=== PATIENT | male | born 1945 | race Caucasian/White ===

== ENCOUNTER 2016-11-19 23:43 | Emergency (ER) | payer OTHER ==
--- NOTE | 2016-11-19 23:48 | EDPHY ---
H & P HPI/ROS: HPI CHIEF COMPLAINT: Fall, lives at [facility] HISTORY OF PRESENT ILLNESS: This patient very pleasant 71-year-old male significant past medical history for schizophrenia, hypertension chronic kidney disease congestive heart failure type 2 diabetes COPD GERD BPH coronary artery disease, hyperlipidemia, obesity he presents to the emergency room by ambulance from [facility] after he had a fall. Patient tells me lost his balance he was walking forward he fell forward unclear if he struck his head. He denies LOC. Denies chest pain or shortness of breath. Tells me this time he has no complaints specifically denies pain anywhere. Does, the most form he is a full code. On his medication list there is no evidence that he is on any blood thinners he is insulin-dependent diabetic and has hypertension medications. He has no trauma visualized on exam. And has no focal complaints specifically denies headache, neck pain chest pain or shortness of breath. Patient is not exactly sure why he is here in the emergency room. Past Medical History: Schizophrenia, hypertension, chronic kidney disease, CHF , type 2 diabetes, COPD, GERD, BPH, coronary disease, hyperlipidemia, obesity, ? Dementia Past Surgical History: Abdominal surgery Social History: denies daily drugs use or alcohol lives at [facility] Family History: Non-Contributary ROS REVIEW OF SYSTEMS: A comprehensive 10 point review of systems is otherwise negative aside from elements mentioned in the history of present illness. Exam Constitutional triage nursing summary reviewed, vital signs reviewed, awake/ alert. Eyes normal conjunctivae and sclera, EOMI, PERRLA. HENT normal inspection, atraumatic, moist mucus membranes, no epistaxis, neck supple/ no meningismus, no raccoon eyes. Respiratory clear to auscultation bilaterally, normal breath sounds, no respiratory distress, no wheezing. Cardiovascular rate normal, regular rhythm, no murmur, no edema, distal pulses normal. Gastrointestinal soft, non-tender, no rebound, no guarding, normal bowel sounds, no distension, no pulsatile mass. Genitourinary no CVA tenderness. Musculoskeletal no midline vertebral tenderness, full range of motion, no calf swelling, no tenderness of extremities, no meningismus, good pulses, neurovascularly intact. Skin pink, warm, & dry, no rash, skin atraumatic. Neurologic awake, alert and oriented x 3, AAOx3, moves all 4 extremities equally, motor intact, sensory intact, CN II-XII intact, normal cerebellar, normal vision, normal speech. Psychiatric normal mood/affect. Heme/Lymph/Immune no lymphadenopathy. Differential Diagnosis: Includes but is not limited to in a particular order mechanical trip and fall, electrolyte disturbance, dehydration, vasovagal syncope or syncope, doubt acute coronary syndrome, closed head injury, cervical spine injury, chest wall injury Medical Decision Making: plan for this patient had a mechanical trip and fall at [facility] we did call the staff there they do confirm that he lost his balance while trying to open a door he had a mechanical trip and fall this was witnessed by his roommate. There was head strike against the door. No reported LOC no seizure activity. No syncopal event witnessed. Re-evaluation: CT scan of the head without IV contrast. The results of the study are negative for traumatic in. The study was read by Dr. Otero I viewed the images myself on the PACS system. CT scan of the cervical spine without IV contrast. The results of the study are negative for traumatic injury. The study was read by Dr. otero. I viewed the images myself on the PACS system. EKG interpretation by me on record in [email or web address] system. Impression time of EKG 12:14 a.m., this is sinus tachycardia rate of 106, otherwise unremarkable no signs of acute ischemia or cardiac arrhythmia. ED x-ray chest one view: Negative for acute cardiopulmonary disease. Image interpreted by myself. [id number]: Re-evaluation at this time this patient is resting comfortably no acute distress. CT scan blood work has been reviewed. Vital signs reviewed. Patient is hemodynamically stable no acute distress infected sleeping here in the emergency room. CT scan x-rays reviewed for trauma given mechanical fall. No evidence of acute trauma on exam. Patient is at his neurological baseline and I will allow him to go back to his living facility. Source: Patient, EMS Constitutional: Initial Vital Signs Temperature (C) 36.5 C 11/19/16 23:48 Heart Rate 88 11/19/16 23:48 Respiratory Rate 15 11/19/16 23:48 Blood Pressure 145/97 H 11/19/16 23:48 O2 Sat (%) 93 11/19/16 23:48 O2 Delivery Mode Room Air Allergies/Adverse Reactions: No Known Allergies Allergy (Unverified 11/20/16 00:01) Home Medications: Medication Instructions Recorded Benztropine Mesylate 11/20/16 Divalproex Sodium [Depakote] 500 mg PO 11/20/16 Docusate Sodium 100 mg PO 11/20/16 Insulin Aspart [novoLOG] 11/20/16 Insulin Detemir [Levemir] 100 unit SQ 11/20/16 Levothyroxine [Synthroid 75 mcg 75 mcg PO DAILY06 11/20/16 (*)] Lisinopril 20 mg PO 11/20/16 Melatonin 5 mg PO 11/20/16 Metformin HCl [Metformin 1000 mg] 11/20/16 Medical Decision Making - Data Points Laboratory Results: Laboratory Results 11/20/16 00:25 11/20/16 00:25 11/20/16 11/20/16 00:25 00:25 WBC 13.06 10^3/uL H 10^3/uL (3.80-9.50) RBC 5.24 10^6/uL 10^6/uL (4.40-6.38) Hgb 15.2 g/dL g/dL (13.7-17.5) Hct 45.6 % % (40.0-51.0) MCV 87.0 fL fL (81.5-99.8) MCH 29.0 pg pg (27.9-34.1) MCHC 33.3 g/dL g/dL (32.4-36.7) RDW 13.8 % % (11.5-15.2) Plt Count 215 10^3/uL 10^3/uL (150-400) MPV 11.6 fL fL (8.7-11.7) Neut % (Auto) 67.8 % % (39.3-74.2) Lymph % (Auto) 18.1 % % (15.0-45.0) [place] % (Auto) 11.3 % % (4.5-13.0) Eos % (Auto) 1.8 % % (0.6-7.6) Baso % (Auto) 0.7 % % (0.3-1.7) Nucleat RBC Rel Count 0.0 % % (0.0-0.2) Absolute Neuts (auto) 8.85 10^3/uL H 10^3/uL (1.70-6.50) Absolute Lymphs (auto) 2.37 10^3/uL 10^3/uL (1.00-3.00) Absolute Monos (auto) 1.47 10^3/uL H 10^3/uL (0.30-0.80) Absolute Eos (auto) 0.24 10^3/uL 10^3/uL (0.03-0.40) Absolute Basos (auto) 0.09 10^3/uL 10^3/uL (0.02-0.10) Absolute Nucleated RBC 0.00 10^3/uL 10^3/uL (0-0.01) Immature Gran % 0.3 % % (0.0-1.1) Immature Gran # 0.04 10^3/uL 10^3/uL (0.00-0.10) Sodium 140 mEq/L mEq/L (134-144) Potassium 5.1 mEq/L mEq/L (3.5-5.2) Chloride 103 mEq/L mEq/L (97-110) Carbon Dioxide 21 mEq/l L mEq/l (22-31) Anion Gap 16 mEq/L mEq/L (8-16) BUN 14 mg/dL mg/dL (7-23) Creatinine 0.9 mg/dL mg/dL (0.7-1.3) Estimated GFR > 60 Glucose 132 mg/dL H mg/dL (70-100) Calcium 9.3 mg/dL mg/dL (8.5-10.4) Troponin I < 0.012 ng/mL ng/mL (0-0.034) Medications Given: Discontinued Medications Sodium Chloride (Ns) 500 mls @ 0 mls/hr IV ONCE ONE PRN Reason: Wide Open Stop: 11/19/16 23:50 Last Admin: 11/20/16 00:27 Dose: 500 mls Departure - Departure Disposition: Home, Routine, Self-Care Clinical Impression: Fall Qualifiers: Encounter type: initial encounter Qualified Code(s): W19.XXXA - Unspecified fall, initial encounter Condition: Fair Instructions: Fall Prevention for Older Adults (ED), Fall Prevention (ED) Additional Instructions: 1. Please return emergency room if he develops any worsening symptoms questions or concerns. 2.You had a CT scan of her head and neck an x-ray given that you fell there is no injury seen on any of this imaging. Referrals: ONI TAYLOR [Primary Care Provider] - As per Instructions
[2016-11-19] MEDS ORDERED: NS 500 ML IV ONE (23:49)
--- NOTE | 2016-11-20 00:16 | CPEKG ---
Heart Rate: 106 RR Interval: 566 P-R Interval: 172 QRSD Interval: 94 QT Interval: 352 QTC Interval: 468 P [place]: 23 QRS [place]: -24 T Wave [place]: 68 EKG Severity - OTHERWISE NORMAL ECG - EKG Impression: SINUS TACHYCARDIA EKG Impression: BORDERLINE LEFT AXIS DEVIATION EKG Impression: Possible left atrial abnormality Electronically Signed By: Abdulkadir Roman 22-Nov-2016 12:26:33
[2016-11-20 00:38] LABS: % IMMATURE GRANULYOCYTES 0.3 % (0.0-1.1); ABSOLUTE IMMATURE GRANULOCYTES 0.04 10^3/uL (0.00-0.10); ADD DIFF? NO; ADD MORPH? NO; ADD SCAN? NO; ATYPICAL LYMPHOCYTE FLAG 0 (0-99); FRAGMENT RBC FLAG 0 (0-99); HEMATOCRIT 45.6 % (40.0-51.0); HEMOGLOBIN 15.2 g/dL (13.7-17.5); LEFT SHIFT FLG 0 (0-99); LIPEMIA HEMOLYSIS FLAG 80 (0-99); MEAN CELL HEMOGLOBIN CONCENTR. 33.3 g/dL (32.4-36.7); MEAN PLATELET VOLUME 11.6 fL (8.7-11.7); PLATELET CLUMPS FLAG 0 (0-99); PLATELET COUNT 215 10^3/uL (150-400); RED BLOOD CELL COUNT 5.24 10^6/uL (4.40-6.38); RED CELL DISTRIBUTION WIDTH 13.8 % (11.5-15.2)
[2016-11-20 00:57] LABS: ANION GAP 16 mEq/L (8-16); CALCIUM 9.3 mg/dL (8.5-10.4); CARBON DIOXIDE 21 mEq/l (22-31); CHLORIDE 103 mEq/L (97-110); CREATININE 0.9 mg/dL (0.7-1.3); GLOMERULAR FILTRATION RATE > 60; GLUCOSE 132 mg/dL (70-100); POTASSIUM 5.1 mEq/L (3.5-5.2); SODIUM 140 mEq/L (134-144)
[2016-11-20 01:09] LABS: TROPONIN I < 0.012 ng/mL (0-0.034)
[2016-11-20 01:38] VITALS: RESP 16; O2SAT 100
[2016-11-20 02:36] VITALS: BP 149/98; PULSE 74; TEMP 98.2
== END 2016-11-20 02:36 | disposition home or self-care (01) ==
DX: Z04.3 Encounter for examination and observation following other accident (principal); I12.9 Hypertensive chronic kidney disease with stage 1 through stage 4 chronic kidney disease, or unspecified chronic kidney disease; N18.9 Chronic kidney disease, unspecified; I50.9 Heart failure, unspecified; E11.9 Type 2 diabetes mellitus without complications; J44.9 Chronic obstructive pulmonary disease, unspecified; Z79.4 Long term (current) use of insulin; Z79.84 Long term (current) use of oral hypoglycemic drugs; W18.09XA Striking against other object with subsequent fall, initial encounter; Y93.01 Activity, walking, marching and hiking

== ENCOUNTER 2017-04-08 19:02 | Emergency (ER) | payer OTHER ==
[2017-04-08 19:16] VITALS: RESP 18
--- NOTE | 2017-04-08 19:16 | EDPHY ---
H & P Time Seen by Provider: 04/08/17 19:13 HPI/ROS: HPI: Mr. Cortes is a 71 yrs, male who presents with Chief Complaint: Accidental fall Location: Note Quality: Injury Duration: 30 minutes prior to arrival Signs and Symptoms: No active bleeding, no headache, no loss of consciousness, no neck pain, no syncope, no dizziness, no fever, no chest pain, shortness of breath, no abdominal pain, no nausea vomiting, no back pain Timing: Sudden Severity: [id number] Context: Patient is a resident of [facility]. Was getting out of bed and tripped on the call button cord. Patient lost his balance and fell directly onto his nose. Was able to get himself up off the floor. EMS called and noted patient was only mild assistance to stretcher. Does not take any blood thinners. Fingerstick upon arrival was 210. Does not use any walker or cane for ambulatory aids at baseline. Modifying Factors: Politely declined ice pack Comment: ROS: Eyes: No blurred vision Respiratory: No shortness of breath, no cough Cardiovascular: No chest pain Gastrointestinal: No nausea, no vomiting no diarrhea Genitourinary: No dysuria Extremities: No myalgias Neurologic: No weakness, no numbness Skin: No rashes Hematologic: No bruising, no bleeding MEDICAL/SURGICAL HISTORY: Schizophrenia, dementia with behavioral disturbance, type 2 diabetes mellitus, hypertension Social History: Resident of [facility]. Disabled. Physical Exam: CONSTITUTIONAL: Pleasant elderly white male, interactive and pleasant, awake and alert, no obvious distress HEENT: normocephalic, mild abrasion noted to the bridge of nose-no active bleeding. PERRL, EOMI. No periorbital darkening. Tympanic membranes clear. A TM rupture. Nares patent, no septal hematoma. No epistaxis. Oropharynx clear, tongue lacerations, no exudate and moist pink mucosa. Airway patent. NECK: Supple, full range of motion including flexion extension and rotation side to side, no midline tenderness, No lymphadenopathy. No meningismus. Cardiovascular: Normal S1/S2, regular rate, regular rhythm, without murmur rub or gallop. PULMONARY/CHEST: Symmetrical and nontender. Clear to auscultation bilaterally. No crepitus. No ecchymosis. Good air movement. No accessory muscle usage. ABDOMEN: Soft, nondistended, nontender, no rebound, no guarding, no peritoneal signs, no masses or organomegaly. No CVAT. No Ecchymosis. Who felt right lower quadrant incision noted from appendectomy. EXTREMITIES: 2/2 pulses, no deformities, no clubbing, no cyanosis or edema. NEUROLOGICAL: no focal neuro deficits. GCS 15. Able to move all 4 extremities. Able to lift self up in a sitting position from lying supine in the ED stretcher without assistance. SKIN: Warm and dry, pallor, no erythema. no rash. Good capillary refill. Constitutional: Initial Vital Signs Heart Rate 73 04/08/17 19:12 Respiratory Rate 18 04/08/17 19:12 Blood Pressure 175/87 H 04/08/17 19:12 O2 Sat (%) 96 04/08/17 19:12 O2 Delivery Mode Room Air Allergies/Adverse Reactions: No Known Allergies Allergy (Unverified 11/20/16 00:01) Home Medications: Medication Instructions Recorded Benztropine Mesylate 11/20/16 Divalproex Sodium [Depakote] 500 mg PO 11/20/16 Docusate Sodium 100 mg PO 11/20/16 Insulin Aspart [novoLOG] 11/20/16 Insulin Detemir [Levemir] 100 unit SQ 11/20/16 Levothyroxine [Synthroid 75 mcg 75 mcg PO DAILY06 11/20/16 (*)] Lisinopril 20 mg PO 11/20/16 Melatonin 5 mg PO 11/20/16 Metformin HCl [Metformin 1000 mg] 11/20/16 Medical Decision Making ED Course/Re-evaluation: CT maxillofacial scan, CT head scan, CT cervical scan ordered and per call from radiologist no acute process including nasal fracture Fall is mechanical/accidental in nature. No signs of neurovascular compromise, syncope, hypoglycemia, globe entrapment, fracture, dislocation, intracranial hemorrhage. Afebrile. no systemic signs. Nasal bridge abrasion clean with mild soap and water and bacitracin applied. Tetanus up-to-date. Differential Diagnosis: Fall in the elderly including but not limited to intracranial injury, long bone and pelvic bone fracture, spinal injury, and intrathoracic injury. Departure - Departure Disposition: Home, Routine, Self-Care Clinical Impression: Accidental fall Qualifiers: Encounter type: initial encounter Qualified Code(s): W19.XXXA - Unspecified fall, initial encounter Abrasion of nose Qualifiers: Encounter type: initial encounter Qualified Code(s): S00.31XA - Abrasion of nose, initial encounter Condition: Good Instructions: Fall Prevention for Older Adults (ED), Abrasion (ED) Additional Instructions: Fall precautions. Washed abrasion daily with mild soap and water. Apply topical antibiotic daily as needed. Referrals: ONI TAYLOR [Primary Care Provider] - Follow Up Only If Needed
[2017-04-08 21:29] VITALS: BP 159/94; PULSE 92; TEMP 97.9; O2SAT 97
== END 2017-04-08 21:28 | disposition home or self-care (01) ==
LOC: EDUNIT#
DX: S00.31XA Abrasion of nose, initial encounter (principal); I10 Essential (primary) hypertension; E11.9 Type 2 diabetes mellitus without complications; Z79.4 Long term (current) use of insulin; Z79.84 Long term (current) use of oral hypoglycemic drugs; W01.0XXA Fall on same level from slipping, tripping and stumbling without subsequent striking against object, initial encounter

== ENCOUNTER 2017-04-29 20:16 | Inpatient (IN) | payer OTHER ==
--- NOTE | 2017-04-29 20:52 | EDPHY ---
H & P Time Seen by Provider: 04/29/17 20:25 HPI/ROS: Chief complaint. Hypoxic event HPI. Patient is 71-year-old male and resident at [facility]. Tonight he was walking in the hallway and felt slightly off balance. His vital signs were checked in it was on his oxygen saturation was about 85%. EMS was called and he was sent to the emergency department. He had no chest discomfort. He had no sense of shortness of breath. His symptoms has repeat dissolves. He has had some coughing. He has no unusual leg pain or swelling. He has had similar symptoms before. ROS Constitutional. no fever/chills, no weakness Eyes. no problems with vision ENT. no sore throat, no nasal drainage Cardiovascular. no chest pain Respiratory. no shortness of breath, no cough Abdominal. no abdominal pain, no nausea/vomiting, no diarrhea . no problems urinating MS. no calf pain/swelling, no neck/back pain, no joint pain Skin. no rash Lymph. no swollen glands Neuro. Off balance while walking Past Medical/Surgical History: Past medical history is significant for schizophrenia, chronic renal insufficiency, congestive heart failure, diabetes, COPD, GERD, dyslipidemia Social History: Single, daily smoker, no alcohol Smoking Status: Light smoker Physical Exam: General Appearance: Alert well-developed male mild distress vital signs show heart rate 102 and O2 saturation initially 90% Eyes: Pupils equal and round no pallor or injection. ENT, Mouth: Mucous membranes are moist. Respiratory: There are no retractions, lungs are clear to auscultation. Cardiovascular: Regular rate and rhythm. Gastrointestinal: Abdomen is soft and nontender, no masses, bowel sounds normal. Neurological: Awake and alert, sensory and motor exams grossly normal. Skin: Warm and dry, no rashes. Musculoskeletal: Neck is supple nontender. Extremities symmetrical, full range of motion. Psychiatric: Patient is oriented X 3, there is no agitation. Constitutional: Initial Vital Signs Temperature (C) 37.5 C 04/29/17 20:25 Heart Rate 102 H 04/29/17 20:25 Respiratory Rate 20 04/29/17 20:25 Blood Pressure 161/86 H 04/29/17 20:25 O2 Sat (%) 90 L 04/29/17 20:25 O2 Delivery Mode Nasal Cannula O2 (L/minute) 3 Allergies/Adverse Reactions: thiopental Allergy (Verified 04/29/17 20:25) Home Medications: Medication Instructions Recorded Benztropine Mesylate 11/20/16 Divalproex Sodium [Depakote] 500 mg PO 11/20/16 Docusate Sodium 100 mg PO 11/20/16 Insulin Aspart [novoLOG] 11/20/16 Insulin Detemir [Levemir] 100 unit SQ 11/20/16 Levothyroxine [Synthroid 75 mcg 75 mcg PO DAILY06 11/20/16 (*)] Lisinopril 20 mg PO 11/20/16 Melatonin 5 mg PO 11/20/16 Metformin HCl [Metformin 1000 mg] 11/20/16 Medical Decision Making - Diagnostics Imaging Results: Imaging Impressions Chest X-Ray 04/29/17 20:59 Impression: 1. Mild prominent interstitial markings at the lung bases that could represent mild in interstitial dependent edema. Rule out fluid overload. Chest/Thorax CTA 04/29/17 22:09 Impression: 1. No evidence of pulmonary embolus using CT protocol. There is breathing motion causing artifact at the lung bases. 2. Arteriosclerotic calcifications are noted of the aortic arch and coronary arteries. 3. Band of atelectasis or fibrotic streak at the left base as well as focal areas of fibrotic change at the right lung base adjacent to the right hemidiaphragm medially. 4. Prominent calcified left hilar and subcarinal nodes with a few small calcified granulomas left lung. Findings discussed with Abdulkadir Ventura M.D. at 22:45 hour, 04/29/2017. Chest x-ray consistent with CHF CT chest reviewed by me and discussed with Dr. Khanna shows no evidence for pulmonary embolus Procedures: IV normal saline ED Course/Re-evaluation: Re-evaluation 10:10 p.m.. Patient is stable. He and I discussed laboratory evaluation and imaging studies. We discussed recommendation for CT angiogram chest as he has an elevated D-dimer. Patient expresses understanding and agreement Re-evaluation 11:00 p.m.--patient's desaturating at rest to 84% saturation. He really has no complaints however. he is placed on oxygen I consulted and discussed case with Dr. Workman, hospitalist, who agrees to the admission Differential Diagnosis: I have considered COPD exacerbation, CHF pneumonia, pulmonary embolus - Data Points Laboratory Results: Laboratory Results 04/29/17 20:00 04/29/17 20:00 04/29/17 04/29/17 04/29/17 20:00 20:00 20:00 WBC 10.31 10^3/uL H 10^3/uL (3.80-9.50) RBC 4.57 10^6/uL 10^6/uL (4.40-6.38) Hgb 13.8 g/dL g/dL (13.7-17.5) Hct 40.8 % % (40.0-51.0) MCV 89.3 fL fL (81.5-99.8) MCH 30.2 pg pg (27.9-34.1) MCHC 33.8 g/dL g/dL (32.4-36.7) RDW 13.5 % % (11.5-15.2) Plt Count 171 10^3/uL 10^3/uL (150-400) MPV 12.4 fL H fL (8.7-11.7) Neut % (Auto) 79.0 % H % (39.3-74.2) Lymph % (Auto) 8.8 % L % (15.0-45.0) [place] % (Auto) 10.7 % % (4.5-13.0) Eos % (Auto) 0.3 % L % (0.6-7.6) Baso % (Auto) 0.7 % % (0.3-1.7) Nucleat RBC Rel Count 0.0 % % (0.0-0.2) Absolute Neuts (auto) 8.15 10^3/uL H 10^3/uL (1.70-6.50) Absolute Lymphs (auto) 0.91 10^3/uL L 10^3/uL (1.00-3.00) Absolute Monos (auto) 1.10 10^3/uL H 10^3/uL (0.30-0.80) Absolute Eos (auto) 0.03 10^3/uL 10^3/uL (0.03-0.40) Absolute Basos (auto) 0.07 10^3/uL 10^3/uL (0.02-0.10) Absolute Nucleated RBC 0.00 10^3/uL 10^3/uL (0-0.01) Immature Gran % 0.5 % % (0.0-1.1) Immature Gran # 0.05 10^3/uL 10^3/uL (0.00-0.10) D-Dimer 0.78 ug/mLFEU H ug/mLFEU (0.00-0.50) Sodium 133 mEq/L L mEq/L (134-144) Potassium 4.5 mEq/L mEq/L (3.5-5.2) Chloride 96 mEq/L L mEq/L (97-110) Carbon Dioxide 24 mEq/l mEq/l (22-31) Anion Gap 13 mEq/L mEq/L (8-16) BUN 18 mg/dL mg/dL (7-23) Creatinine 1.2 mg/dL mg/dL (0.7-1.3) Estimated GFR 59 Glucose 157 mg/dL H mg/dL (70-100) Calcium 9.7 mg/dL mg/dL (8.5-10.4) Troponin I < 0.012 ng/mL ng/mL (0.000-0.034) NT-Pro-B Natriuret Pep 1170 pg/mL H pg/mL (0-125) Departure - Departure Disposition: [facility] Acute Clinical Impression: Hypoxia Acute exacerbation of congestive heart failure Qualifiers: Congestive heart failure type: unspecified congestive heart failure type Qualified Code(s): I50.9 - Heart failure, unspecified Condition: Fair Referrals: ONI TAYLOR [Primary Care Provider] - As per Instructions
[2017-04-29 21:04] LABS: % IMMATURE GRANULYOCYTES 0.5 % (0.0-1.1); ABSOLUTE IMMATURE GRANULOCYTES 0.05 10^3/uL (0.00-0.10); ADD DIFF? NO; ADD MORPH? NO; ADD SCAN? NO; ATYPICAL LYMPHOCYTE FLAG 0 (0-99); FRAGMENT RBC FLAG 0 (0-99); HEMATOCRIT 40.8 % (40.0-51.0); HEMOGLOBIN 13.8 g/dL (13.7-17.5); LEFT SHIFT FLG 0 (0-99); LIPEMIA HEMOLYSIS FLAG 90 (0-99); MEAN CELL HEMOGLOBIN 30.2 pg (27.9-34.1); MEAN CELL HEMOGLOBIN CONCENTR. 33.8 g/dL (32.4-36.7); MEAN CELL VOLUME 89.3 fL (81.5-99.8); MEAN PLATELET VOLUME 12.4 fL (8.7-11.7); PLATELET CLUMPS FLAG 30 (0-99); PLATELET COUNT 171 10^3/uL (150-400); RED BLOOD CELL COUNT 4.57 10^6/uL (4.40-6.38); RED CELL DISTRIBUTION WIDTH 13.5 % (11.5-15.2)
--- NOTE | 2017-04-29 21:07 | CPEKG ---
Heart Rate: 102 RR Interval: 588 P-R Interval: 184 QRSD Interval: 92 QT Interval: 348 QTC Interval: 454 P [place]: 18 QRS [place]: -31 T Wave [place]: 82 EKG Severity - BORDERLINE ECG - EKG Impression: SINUS TACHYCARDIA EKG Impression: LEFT AXIS DEVIATION EKG Impression: BORDERLINE T ABNORMALITIES, LATERAL LEADS Electronically Signed By: Dede Ellis 30-Apr-2017 21:25:29
[2017-04-29 21:11] LABS: ANION GAP 13 mEq/L (8-16); CALCIUM 9.7 mg/dL (8.5-10.4); CARBON DIOXIDE 24 mEq/l (22-31); CHLORIDE 96 mEq/L (97-110); CREATININE 1.2 mg/dL (0.7-1.3); GLOMERULAR FILTRATION RATE 59; GLUCOSE 157 mg/dL (70-100); POTASSIUM 4.5 mEq/L (3.5-5.2); SODIUM 133 mEq/L (134-144)
[2017-04-29 21:22] LABS: TROPONIN I < 0.012 ng/mL (0.000-0.034)
[2017-04-29] MEDS ORDERED: IOPAMIDOL (ISOVUE 370) 100 ML BTL IV ONE (22:13)
[2017-04-29] MEDS ORDERED: ONDANSETRON 4 MG/2 ML VIAL IVP PRN (23:42)
[2017-04-29] MEDS ORDERED: ACETAMINOPHEN 325 MG TAB PO PRN (23:42)
[2017-04-29] MEDS ORDERED: ONDANSETRON DISINTEGRATING 4 MG TAB PO PRN (23:42)
[2017-04-30] MEDS ORDERED: D50W 25 GM/50 ML SYR IVP PRN (00:18)
--- NOTE | 2017-04-30 00:19 | PDHOMEO2F ---
Home Oxygen Face to Face Home Orders: I certify that a physician or a nurse practitioner or physician's fiscal assistant has had a [id number] encounter with this patient on the date of this order due to the diagnosis listed, which relates to the primary reason the patient requires home oxygen. Alternative treatments have been tried, or considered, and deemed ineffective. It is anticipated that supplemental oxygen will result in improvement with treatment. Home oxygen qualifying diagnosis: COPD Home oxygen secondary diagnosis: CHF SpO2 on room air (%): 85 Frequency of home oxygen needed: continuous Home oxygen liters per minute: 2 Home oxygen delivery device: nasal cannula Concentrator: Yes E-tanks for mobility and back up: Yes If ordering portable O2, is the patient mobile in the home?: Yes I certify that, based on these findings, the home oxygen is medically necessary for this patient for the following length of time. Length of time home oxygen needed: 1 month
--- NOTE | 2017-04-30 00:22 | PDGENHP ---
History and Physical - Chief Complaint Acute ataxia - History of Present Illness PCP: Dr. Jose Miguel Smith HPI: 71 yo M p/w acute ataxia characterized as unsteadiness on his feet, exacerbated by ambulating down a hallway, with associated non-productive cough. Onset of symptoms 2 days prior, duration intermittent thereafter. Patient was reportedly ambulating down a hallway at [facility] today, when he mentioned his symptoms to a staff member, and pulse ox noted he was 85% on room air. He otherwise reports he is taking all his Rx, without any recent changes, and his PO intake has been at his baseline. No recent changes in weight or UOP. History Information - Allergies/Home Medication List Allergies/Adverse Reactions: thiopental Allergy (Verified 04/29/17 20:25) Home Medications: Benztropine Mesylate 11/20/16 [Last Taken Unknown] Divalproex Sodium [Depakote] 500 mg PO 11/20/16 [Last Taken Unknown] Docusate Sodium 100 mg PO 11/20/16 [Last Taken Unknown] Insulin Aspart [novoLOG] 11/20/16 [Last Taken Unknown] Insulin Detemir [Levemir] 100 unit SQ 11/20/16 [Last Taken Unknown] Levothyroxine [Synthroid 75 mcg (*)] 75 mcg PO DAILY06 11/20/16 [Last Taken Unknown] Lisinopril 20 mg PO 11/20/16 [Last Taken Unknown] Melatonin 5 mg PO 11/20/16 [Last Taken Unknown] Metformin HCl [Metformin 1000 mg] 11/20/16 [Last Taken Unknown] I have personally reviewed and updated: family history, medical history, social history, surgical history - Past Medical History COPD (not on inhalers chronically), hypertension Additional medical history: Hypothyroidism. Underlying psychiatric illness - Surgical History Reports: no pertinent surgical hx - Family History Additional family history: parents w/ CAD and CHF in 70s - Social History Smoking Status: Light smoker Alcohol Use: Other (in past, none present) Drug Use: None Additional social history: resides at [facility], patient is somewhat unclear as to how/why he lives there Review of Systems Review of Systems: ROS: 10pt was reviewed & negative except for what was stated in HPI & below Respiratory: Reports: cough Neurological: Reports: other (unsteadiness) Physical Exam Physical Exam: Temp Pulse Resp BP Pulse Ox 37.1 C 70 18 148/73 H 97 04/30/17 00:05 04/30/17 00:05 04/30/17 00:05 04/30/17 00:05 04/30/17 00:05 O2 (L/minute) 2 Constitutional: no apparent distress, not in pain, chronically ill appearing, unkempt, No uncomfortable Eyes: anicteric sclera, EOMI, other (constricted pupils) Ears, Nose, Mouth, Throat: moist mucous membranes, hearing normal, ears appear normal, no oral mucosal ulcers Cardiovascular: regular rate and rhythym, no murmur, rub, or gallop, edema ( trace bilat LE), No irregularly irregular, No tachycardia Respiratory: reduced air movement (on expiration bilat), expiratory wheeze, inspiratory crackles (bilat bases), No respiratory distress Gastrointestinal: normoactive bowel sounds, soft, non-tender abdomen, no palpable masses Skin: other (dry, flaking, mild ruborous upper ext w/o ulcerations) Neurologic: sensation intact bilaterally, CN II-XII Intact, other (dysarthric speech, AAOx1 only), No weakness, No facial droop Psychiatric: interacting appropriately, not anxious, flat affect, poor insight, poor memory, No agitated Lab Data & Imaging Review 04/29/17 20:00 04/29/17 20:00 WBC 10.31 10^3/uL (3.80-9.50) H 04/29/17 20:00 RBC 4.57 10^6/uL (4.40-6.38) 04/29/17 20:00 Hgb 13.8 g/dL (13.7-17.5) 04/29/17 20:00 Hct 40.8 % (40.0-51.0) 04/29/17 20:00 MCV 89.3 fL (81.5-99.8) 04/29/17 20:00 MCH 30.2 pg (27.9-34.1) 04/29/17 20:00 MCHC 33.8 g/dL (32.4-36.7) 04/29/17 20:00 RDW 13.5 % (11.5-15.2) 04/29/17 20:00 Plt Count 171 10^3/uL (150-400) 04/29/17 20:00 MPV 12.4 fL (8.7-11.7) H 04/29/17 20:00 Neut % (Auto) 79.0 % (39.3-74.2) H 04/29/17 20:00 Lymph % (Auto) 8.8 % (15.0-45.0) L 04/29/17 20:00 [place] % (Auto) 10.7 % (4.5-13.0) 04/29/17 20:00 Eos % (Auto) 0.3 % (0.6-7.6) L 04/29/17 20:00 Baso % (Auto) 0.7 % (0.3-1.7) 04/29/17 20:00 Nucleat RBC Rel Count 0.0 % (0.0-0.2) 04/29/17 20:00 Absolute Neuts (auto) 8.15 10^3/uL (1.70-6.50) H 04/29/17 20:00 Absolute Lymphs (auto) 0.91 10^3/uL (1.00-3.00) L 04/29/17 20:00 Absolute Monos (auto) 1.10 10^3/uL (0.30-0.80) H 04/29/17 20:00 Absolute Eos (auto) 0.03 10^3/uL (0.03-0.40) 04/29/17 20:00 Absolute Basos (auto) 0.07 10^3/uL (0.02-0.10) 04/29/17 20:00 Absolute Nucleated RBC 0.00 10^3/uL (0-0.01) 04/29/17 20:00 Immature Gran % 0.5 % (0.0-1.1) 04/29/17 20:00 Immature Gran # 0.05 10^3/uL (0.00-0.10) 04/29/17 20:00 D-Dimer 0.78 ug/mLFEU (0.00-0.50) H 04/29/17 20:00 Sodium 133 mEq/L (134-144) L 04/29/17 20:00 Potassium 4.5 mEq/L (3.5-5.2) 04/29/17 20:00 Chloride 96 mEq/L (97-110) L 04/29/17 20:00 Carbon Dioxide 24 mEq/l (22-31) 04/29/17 20:00 Anion Gap 13 mEq/L (8-16) 04/29/17 20:00 BUN 18 mg/dL (7-23) 04/29/17 20:00 Creatinine 1.2 mg/dL (0.7-1.3) 04/29/17 20:00 Estimated GFR 59 04/29/17 20:00 Glucose 157 mg/dL (70-100) H 04/29/17 20:00 Calcium 9.7 mg/dL (8.5-10.4) 04/29/17 20:00 Troponin I < 0.012 ng/mL (0.000-0.034) 04/29/17 20:00 NT-Pro-B Natriuret Pep 1170 pg/mL (0-125) H 04/29/17 20:00 Visualized and Interpreted imaging results: Yes Interpretation: Chest CT w/o PE, atelectasis, no overt CHF Visualized and Interpreted EKG results: Yes EKG Interpretation: Positive for: other (sinus tach) Assessment & Plan Assessment: 71 yo M p/w acute hypoxia in setting of suspected COPD exacerbation Plan: 1. Suspected COPD exacerbation. Acute, new problem, further w/u indicated. Evidenced by diffuse exp wheezes and reduced exp air movement w/ symptomatic hypoxia (presenting symptom) and several days of cough - suspect URI as precipitating cause, get RVP - place on scheduled nebs, azithro, hold on steroids given underlying mental health illness and gauge effect - ordered home o2, as will likely require in short term - NRT 2. Chronic CHF. Mild edema on physical exam, CT w/o overt CHF, BNP likely chronically elevated w/ probably underlying OHS, 8kg right of way appraiser than presentation approx 1 month ago - get Echo to determine type/baseline, since we have none in our system - hold on lasix - restart home Rx in AM 3. Mental health illness. 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 Tay Barajas 04/08/17 demonstrating white matter disease, atrophy, scalp hematoma, no prior CVA) Diet. Cardiac PPx. High risk, lovenox 40 Code. Full Dispo. ADD 04/30 if above stabilized D/w Dr. Abdulkadir Pruitt, we both agree that patient warrants stabilization of underlying pulm issue prior to discharge.
[2017-04-30] MEDS: NICOTINE 21 MG/24 HR PATCH TD SCH ×2 (01:39→08:59)
[2017-04-30] MEDS: BENZTROPINE MESYLATE 1 MG TAB PO SCH ×3 (01:44→21:17)
[2017-04-30] MEDS: IPRATROPIUM/ALBUTEROL 3 ML DEYVIAL IH SCH ×5 (03:07→22:02)
[2017-04-30 04:50] LABS: % IMMATURE GRANULYOCYTES 0.6 % (0.0-1.1); ABSOLUTE IMMATURE GRANULOCYTES 0.05 10^3/uL (0.00-0.10); ADD DIFF? NO; ADD MORPH? NO; ADD SCAN? NO; ATYPICAL LYMPHOCYTE FLAG 0 (0-99); FRAGMENT RBC FLAG 0 (0-99); HEMATOCRIT 39.1 % (40.0-51.0); LEFT SHIFT FLG 0 (0-99); LIPEMIA HEMOLYSIS FLAG 80 (0-99); MEAN CELL HEMOGLOBIN 29.9 pg (27.9-34.1); MEAN CELL HEMOGLOBIN CONCENTR. 33.2 g/dL (32.4-36.7); MEAN CELL VOLUME 89.9 fL (81.5-99.8); PLATELET CLUMPS FLAG 0 (0-99); PLATELET COUNT 152 10^3/uL (150-400); RED BLOOD CELL COUNT 4.35 10^6/uL (4.40-6.38); RED CELL DISTRIBUTION WIDTH 13.5 % (11.5-15.2)
[2017-04-30] MEDS ORDERED: AZITHROMYCIN 250 MG TAB PO SCH (05:00)
[2017-04-30 05:12] LABS: ALANINE AMINOTRANSFERASE 26 IU/L (21-72); ALBUMIN 3.1 g/dL (3.5-5.0); ALKALINE PHOSPHATASE 44 IU/L (38-126); ANION GAP 10 mEq/L (8-16); ASPARTATE AMINOTRANSFERASE 20 IU/L (17-59); BILIRUBIN,TOTAL 0.5 mg/dL (0.1-1.4); CALCIUM 9.1 mg/dL (8.5-10.4); CARBON DIOXIDE 27 mEq/l (22-31); CHLORIDE 99 mEq/L (97-110); GLOMERULAR FILTRATION RATE > 60; GLUCOSE 91 mg/dL (70-100); POTASSIUM 3.9 mEq/L (3.5-5.2); SODIUM 136 mEq/L (134-144); TOTAL PROTEIN 6.3 g/dL (6.3-8.2)
[2017-04-30] MEDS: AZITHROMYCIN 250 MG TAB PO SCH (05:13)
[2017-04-30 05:20] LABS: TROPONIN I < 0.012 ng/mL (0.000-0.034)
[2017-04-30] MEDS: INSULIN REGULAR HUMAN 100 UNIT/ML SC SCH ×4 (08:23→21:16)
[2017-04-30] MEDS: ENOXAPARIN 40 MG/0.4 ML SYR SC SCH (08:58)
[2017-04-30] MEDS ORDERED: ACETAMINOPHEN 325 MG TAB PO PRN (09:40)
[2017-04-30] MEDS ORDERED: NON-FORMULARY NEW DRUG (Metformin Hcl [Metformin 1000 Mg] 1,000 MG) PO SCH (09:45)
[2017-04-30] MEDS ORDERED: NON-FORMULARY NEW DRUG (Insulin Detemir [Levemir] 20 UNIT) SQ SCH (09:45)
[2017-04-30] MEDS ORDERED: BENZTROPINE MESYLATE 0.5 MG PO SCH (09:45)
[2017-04-30] MEDS: DIVALPROEX ER 500 MG TAB PO SCH (11:29)
[2017-04-30] MEDS: QUEtiapine FUMARATE 200 MG TAB PO SCH (11:29)
[2017-04-30] MEDS: LISINOPRIL 20 MG TAB PO SCH (11:32)
[2017-04-30] MEDS: OXYBUTYNIN 5 MG EXT REL TAB PO SCH (11:32)
[2017-04-30] MEDS: LEVOTHYROXINE 75 MCG TAB PO SCH (11:32)
[2017-04-30] MEDS: INSULIN GLARGINE 100 UNITS/ML SYRINGE SC SCH ×2 (11:54→21:16)
[2017-04-30] MEDS: NYSTATIN POWDER 15 GM BTL TP SCH ×2 (12:05→21:18)
--- NOTE | 2017-04-30 15:46 | HOSPPROG ---
Hospitalist Progress Note Assessment/Plan: 71 yo resident of [facility], presents with probable increased confusion, found to have hypoxemia. Patient status at baseline unknown, no records in EMR. Medications indicate an mental health disorder. He appears in no distress , reports no pain, denies problems, though is poorly interactive and gives no details of problems. -acute exacerbation COPD. Currently on Azithromax, BC and O2; seems improved -acute CHF, no characterized. JVP normal. good urine output. Appears euvolemic now. CXR; shows interstitial edema, enlarged heart. Will give Lasix one dose and assess O2 -sepsis POA; hypertensive, tachycardia, hypoxemia, leukocytosis with left shift -PCM: will assess caloric intake - Subjective: no complaints Objective: Vital Signs Temp Pulse Resp BP Pulse Ox 36.8 C 86 17 128/57 H 95 04/30/17 11:17 04/30/17 11:17 04/30/17 11:17 04/30/17 11:32 04/30/17 11:17 Microbiology 04/30/17 04:20 Respiratory Panel (PCR) - Final Nasal, Sinus - Swab Human Rhinovirus/Enterovirus Laboratory Results 04/30/17 04:17 04/30/17 04:17 - Time Spent With Patient Time Spent with Patient: greater than 35 minutes Time Spent with Patient: Greater than 35 minutes spent on this patients care, greater than 50% of time spent counseling, educating, and coordinating care regarding the above mentioned plan. - Pending Discharge Pending Discharge Within 24 Hours: No Pending Discharge Within 48 Hours: Yes Pending Discharge Date: 05/02/17 Pending Discharge Time: 11:00 - Physical Exam Constitutional: no apparent distress Eyes: PERRL Ears, Nose, Mouth, Throat: moist mucous membranes, hearing normal Cardiovascular: regular rate and rhythym, systolic murmur Respiratory: no respiratory distress, clear to auscultation, reduced air movement, expiratory wheeze Gastrointestinal: normoactive bowel sounds, soft, non-tender abdomen, no palpable masses Genitourinary: no bladder fullness Skin: warm Neurologic: CN II-XII Intact, other (does not answer specific questions: do not know patients baseline) ICD10 Worksheet Patient Problems: Problems Problem Status Onset Acute exacerbation of congestive heart failure Acute Hypoxia Acute
[2017-04-30] MEDS ORDERED: BENZTROPINE MESYLATE 1 MG TAB PO SCH (21:00)
[2017-04-30] MEDS: metFORMIN HCL 500 MG TAB PO SCH (21:17)
[2017-05-01] MEDS: LEVOTHYROXINE 75 MCG TAB PO SCH (04:41)
[2017-05-01] MEDS: IPRATROPIUM/ALBUTEROL 3 ML DEYVIAL IH SCH ×3 (05:58→15:53)
[2017-05-01 10:47] VITALS: BP 146/84; TEMP 97.8
[2017-05-01] MEDS: BENZTROPINE MESYLATE 1 MG TAB PO SCH (11:10)
[2017-05-01] MEDS: QUEtiapine FUMARATE 200 MG TAB PO SCH (11:11)
[2017-05-01] MEDS: metFORMIN HCL 500 MG TAB PO SCH (11:11)
[2017-05-01] MEDS: OXYBUTYNIN 5 MG EXT REL TAB PO SCH (11:11)
[2017-05-01] MEDS: AZITHROMYCIN 250 MG TAB PO SCH (11:12)
[2017-05-01] MEDS: LISINOPRIL 20 MG TAB PO SCH (11:12)
[2017-05-01] MEDS: DIVALPROEX ER 500 MG TAB PO SCH (11:13)
[2017-05-01] MEDS: NYSTATIN POWDER 15 GM BTL TP SCH ×2 (11:14→11:27)
[2017-05-01] MEDS: ENOXAPARIN 40 MG/0.4 ML SYR SC SCH (11:15)
[2017-05-01] MEDS: INSULIN REGULAR HUMAN 100 UNIT/ML SC SCH ×3 (11:18→17:16)
[2017-05-01] MEDS: NICOTINE 21 MG/24 HR PATCH TD SCH (11:19)
[2017-05-01] MEDS: INSULIN GLARGINE 100 UNITS/ML SYRINGE SC SCH (11:24)
--- NOTE | 2017-05-01 13:13 | HOSPPROG ---
Hospitalist Progress Note Assessment/Plan: 71-year-old male with a history significant for schizophrenia in and COPD in long-term care at [facility] presents with hypoxia. He was noted to be ataxic and having abnormal gait at the half-way his oxygen saturations were low. # acute COPD exacerbation secondary to viral illness. Improving in the hospital. * Continue respiratory precaution * Treat COPD exacerbation * Supplemental oxygen as tolerated patient refusing to wear it in the room today. # schizophrenia in long-term care at [facility], continue his usual medications # type 2 diabetes requiring insulin continue blood sugar checks and current medications # hypertension # dementia with behavioral disturbance # hypothyroidism on replacement Subjective: Patient new to me and chart reviewed no complaints currently breathing is okay no chest pain Objective: Vital Signs Temp Pulse Resp BP Pulse Ox 36.6 C 76 16 146/84 H 94 05/01/17 10:46 05/01/17 10:46 05/01/17 10:46 05/01/17 11:12 05/01/17 10:46 04/30/17 05/01/17 05/02/17 05:59 05:59 05:59 Intake Total 850 Balance 850 - Physical Exam Constitutional: chronically ill appearing, obese, unkempt Eyes: PERRL, EOMI Ears, Nose, Mouth, Throat: moist mucous membranes Cardiovascular: regular rate and rhythym Respiratory: no respiratory distress, reduced air movement, expiratory wheeze, inspiratory crackles Gastrointestinal: normoactive bowel sounds, no palpable masses Genitourinary: no bladder fullness Skin: warm Musculoskeletal: No muscular tenderness Psychiatric: interacting appropriately ICD10 Worksheet Patient Problems: Problems Problem Status Onset Acute exacerbation of congestive heart failure Acute Hypoxia Acute
--- NOTE | 2017-05-01 16:38 | PDIAF ---
- Diagnosis Diagnosis: COPD exacerbation, viral illness Code Status: Full Code - Medication Management Discharge Medications: Medications to Continue on Transfer Benztropine Mesylate 0.5 mg PO BID 11/20/16 [Last Taken Unknown] Levothyroxine [Synthroid 75 mcg (*)] 75 mcg PO DAILY06 11/20/16 [Last Taken Unknown] Metformin HCl [Metformin 1000 mg] 1,000 mg PO BID 11/20/16 [Last Taken Unknown] Acetaminophen [Tylenol 325mg (*)] 650 mg PO DAILY PRN 04/30/17 [Last Taken Unknown] Divalproex ER [Depakote ER 500 MG (*)] 2,000 mg PO DAILY 04/30/17 [Last Taken Unknown] Insulin Detemir [Levemir] 20 unit SQ BID 04/30/17 [Last Taken Unknown] Lisinopril [Zestril 20 mg (*)] 20 mg PO DAILY 04/30/17 [Last Taken Unknown] Nystatin Powder [Mycostatin Powder] 1 johanna TP BID 04/30/17 [Last Taken Unknown] Oxybutynin Chloride Xl [Ditropan Xl 5mg (*)] 5 mg PO DAILY 04/30/17 [Last Taken Unknown] Paliperidone Palmitate [Invega Sustenna (*)] 156 mg IM Q30D 04/30/17 [Last Taken 04/17/17] QUEtiapine FUMARATE [Seroquel 200 mg (*)] 200 mg PO DAILY 04/30/17 [Last Taken Unknown] Azithromycin [Zithromax] 500 mg PO DAILY tab 05/01/17 [Last Taken Unknown] Ipratropium/Albuterol [Duoneb (*)] 3 ml IH Q6HRS deyvial 05/01/17 [Last Taken Unknown] Alteration Tailor Antibiotics: Discontinue Zithromax after tomorrow's dose. On 05/02 Discharge Medications: Refer to the Discharge Home Medication list for PRN reason. - Orders Diet Recommendation: ADA 2000 consistent carb Diet Texture: Regular Texture Diet - Follow Up Care Current Providers and Referrals: ONI TAYLOR [Primary Care Provider] - As per Instructions
[2017-05-01 16:41] VITALS: PULSE 84; RESP 18; O2SAT 95
--- NOTE | 2017-05-01 21:46 | GDS ---
[f rep st] DISCHARGE SUMMARY DIAGNOSES: 1. Acute chronic obstructive pulmonary disease exacerbation secondary to viral illness, improving an d on room air. Room air saturations greater than 90%. 2. Schizophrenia in long-term care at [facility]. 3. Type 2 diabetes. 4. Hypertension. 5. Dementia with behavioral determines. 6. Abnormal gait, evaluation by Physical Therapy here felt he was at baseline. He does have some in termittent ataxia. 7. Hypothyroidism on replacement. PROCEDURES DONE: CT angiogram of the chest which was negative for pulmonary embolus. Some atheroscl erotic calcifications and some atelectasis, but no edema or pneumonia noted. HOSPITAL COURSE: The patient is a 71-year-old transferred from [facility] after he told the staff that he was falling and felt weak and ataxic. On admission here, he was very mildly hypoxic in the emergency department, however, has improved and is currently on room air. Evaluation included respir atory panel which was positive for enterovirus, likely contributing to his COPD exacerbation. Chest x-ray and CT angiogram were reviewed and showed no pulmonary embolism or significant pneumonia. I monge spect his weakness was likely secondary to his acute COPD exacerbation from his viral illness. He ap pears to be close to baseline. His other medical issues, including diabetes, hypothyroidism, hyperte nsion, and schizophrenia all remain fairly stable. CONDITION ON DISCHARGE: Good. Vital signs are stable. He is afebrile. He is 94% on room air oxyge n saturation. Blood pressure is 146/84. He is alert, flat affect. Lungs are relatively clear. Hea rt is regular. He has no edema. DISCHARGE MEDICATIONS: Please see discharge medication form. FOLLOWUP: He will be discharged to [facility] with ongoing therapies per their discretion. Total time spent with patient on day of discharge and coordination of care is 35 minutes. /[id number]/MODL
--- NOTE | 2017-05-02 17:07 | ASDISCHSUM ---
Discharge Information Plan Status:Snf Return Medically Cleared to Leave:05/01/2017 Discharge Date:05/01/2017 06:15 PM CM D/C Disposition:Alf Facility ADT D/C Disposition:Alf Facility Projected Discharge Date:05/02/2017 11:00 AM Transportation at D/C:Wheelchair Van Discharge Delay Reason: Follow-Up Date:05/02/2017 11:00 AM Discharge Slot:3 - 18:01 pm - 12:00 am Final Diagnosis:Acute COPD sec to viral illness Placement Information Referral Type:*Snf/SNF Referral ID:[id number] Provider Name:[facility] Address 1:[address] Phone Number: Address 2: Fax Number: [facility] Selection Factors:Returning to Facility State:[place] Patient Contact Information Contact Name:ANDREA Relationship: Address: Home Phone: Work Phone: City: [facility] Phone: State/Zip Code: Email: Financial Information Financial Class:Medicare Advantage Plans Primary Plan Desc:[facility] ADVANTAGE PLANS Primary Plan Number:[id number] Secondary Plan Desc: Secondary Plan Number: Assessment Information [facility] CM Progress Note CM Note CM Note Notes: Pt was admitted w/ataxia and COPD exacerbation. Lives at [facility]. Anticipate d/c back to LT when medically cleared. PT/OT feel pt is close to his baseline and able to return to . Sent clinicals to . CM will continue to follow for any unanticipated d/c needs. Date Signed: 04/30/2017 02:41 PM Electronically Signed By:Tequila Brower [facility] CM Progress Note CM Note CM Note Notes: Reviewed chart, spoke w/ KAMALA Zavaleta. Per Dr. Boggs, pt to discharge back to today. Call placed to Kirstin at ; Kirstin able to accept pt today. Transportation to be arranged and paid for by . Bob from [place] scheduled for pickup at 1800. Update provided to Meghann and pt. Discharge orders/paperwork printed and placed in folder for Bob to hand deliver to , at Kirstin's request. Report called to by [facility]. CM avail for any further issues or concerns. Date Signed: 05/01/2017 06:17 PM Electronically Signed By:Maki Pereira Intervention Information Intervention Type:*ROMEO-Signed Date of Service:04/30/2017 09:42 AM Patient Type:Observation Staff Member:Jennifer Menon Hours: Discipline: Severity: Comment:
[2017-05-17] MEDS ORDERED: PALIPERIDONE PALMITATE 156 MG/ML SYR IM SCH (09:45)
== END 2017-05-01 18:15 | DRG 191 ==
LOC: EDUNIT# → F3N 04-30 00:35 → OBSVTOIN 04-30 17:07
PROVIDERS: ADMIT Internal Medicine; ATTEND Internal Medicine
DX: J44.1 Chronic obstructive pulmonary disease with (acute) exacerbation (principal); F03.91 Unspecified dementia, unspecified severity, with behavioral disturbance; B97.10 Unspecified enterovirus as the cause of diseases classified elsewhere; F20.9 Schizophrenia, unspecified; E11.9 Type 2 diabetes mellitus without complications; I11.0 Hypertensive heart disease with heart failure; I50.9 Heart failure, unspecified; E03.9 Hypothyroidism, unspecified; Z72.0 Tobacco use
CPT/HCPCS: 97161-GP; 97165-GO; G8978-GP-CI; G8979-GP-CI; G8987-GO-CI; G8988-GO-CI; J1650; J1815; Q9967

== ENCOUNTER 2017-07-09 19:56 | Emergency (ER) | payer OTHER ==
--- NOTE | 2017-07-09 19:58 | EDPHY ---
H & P Time Seen by Provider: 07/09/17 19:57 HPI/ROS: CHIEF COMPLAINT: Disoriented HISTORY OF PRESENT ILLNESS: The patient is a 71 y/o male arriving via EMS after being found across the street in an apartment that was not his, but is across the street from [facility], which is where he lives. He was admitted on 04/29/17 for acute ataxia and discharged with home oxygen. He does not know the year, season or where he lives. He does know that he is at [facility]. There is confusion between the nurses, EMS, and patient as to whether or not he took his medication today. There was no witnessed trauma. Denies chest pain or shortness of breath. He denies headache. Prior medical records reviewed including admission note with Dr. Workman on 04/29 REVIEW OF SYSTEMS: A ten point review of systems was performed and is negative with the exception of the items mentioned in the HPI. Past medical history: COPD Hypertension Hyperthyroidism Schizophrenia Chronic kidney disease CHF Type 2 Diabetic Hyperlipidemia Past surgical history: Abdominal surgery Family history: Parents with CAD and CHF in 70s Social history: Lives at [facility] Retired Smoker General Appearance: Alert. Vital signs reviewed. 160/105 BP. Eyes: Pupils equal and round, no conjunctival injection, no discharge. Anicteric. ENT, Mouth: Mucous membranes are dry, no oropharyngeal erythema or edema. Neck: No lymphadenopathy, supple. Respiratory: Lungs are clear to auscultation anteriorly; no wheezes, rales, or rhonchi. Cardiovascular: Regular rate and rhythm; no murmur, rub, or gallop. Gastrointestinal: Abdomen is soft and nontender, no masses or organomegaly, bowel sounds normal. Skin: Warm and dry, no rashes on exposed skin, normal color. Back: Nontender to palpation over the thoracolumbar spine. No CVAT. Extremities: No lower extremity edema, no calf tenderness or swelling. Neurological: Confused. Alert. Moving all four extremities easily and equally. PERRL. EOMI. Facial expressions symmetric. Symmetric motor strength all four extremities. Psychiatric: Normal affect. - Medical/Surgical History Hx Asthma: No Hx Chronic Respiratory Disease: Yes Hx Diabetes: Yes Hx Cardiac Disease: Yes Hx Renal Disease: Yes Hx Cirrhosis: No Hx Alcoholism: No Hx HIV/AIDS: No Hx Splenectomy or Spleen Trauma: No Other PMH: AMS, SCHIZOPHRENIA, CHRONIC KIDNEY DISEASE, CHF, TYPE 2 DIABETIC, COPD, GERD, BPH, HYPERLIPIDEMIA, VIT D DEFICIENCY - Social History Smoking Status: Light smoker Constitutional: Initial Vital Signs Temperature (C) 36.5 C 07/09/17 20:01 Heart Rate 93 07/09/17 20:01 Respiratory Rate 18 07/09/17 20:01 Blood Pressure 160/105 H 07/09/17 20:01 O2 Sat (%) 95 07/09/17 20:01 O2 Delivery Mode Room Air O2 (L/minute) 2 Allergies/Adverse Reactions: thiopental Allergy (Verified 07/09/17 20:07) Home Medications: Medication Instructions Recorded Benztropine Mesylate 0.5 mg PO BID 11/20/16 Levothyroxine [Synthroid 75 mcg 75 mcg PO DAILY06 11/20/16 (*)] Metformin HCl [Metformin 1000 mg] 1,000 mg PO BID 11/20/16 Acetaminophen [Tylenol 325mg (*)] 650 mg PO DAILY PRN 04/30/17 Divalproex ER [Depakote ER 500 MG 2,000 mg PO DAILY 04/30/17 (*)] Insulin Detemir [Levemir] 20 unit SQ BID 04/30/17 Lisinopril [Zestril 20 mg (*)] 20 mg PO DAILY 04/30/17 Nystatin Powder [Mycostatin Powder] 1 johanna TP BID 04/30/17 Oxybutynin Chloride Xl [Ditropan 5 mg PO DAILY 04/30/17 Xl 5mg (*)] Paliperidone Palmitate [Invega 156 mg IM Q30D 04/30/17 Sustenna (*)] QUEtiapine FUMARATE [Seroquel 200 200 mg PO DAILY 04/30/17 mg (*)] Azithromycin [Zithromax] 500 mg PO DAILY tab 05/01/17 Ipratropium/Albuterol [Duoneb (*)] 3 ml IH Q6HRS deyvial 05/01/17 Medical Decision Making ED Course/Re-evaluation: The patient is a 71 y/o male arriving via EMS presenting with confusion. He does not know the year, season or where he lives. 2028: The 12 lead EKG was interpreted by myself as sinus rhythm with a rate of 88. See hard copy and/or "tracemaster" electronic copy for interpretation. Patient's BGL is 335. 2034: Spoke with radiologist, he reports the patient's head CT does not show any acute disease. 2049: Spoke with the patient's nurse. She reports that his prison did not notice altered mental status this morning. His baseline mental status remains unclear. When he was admitted to [facility] on 04/29/17 he was oriented only to person. He also did not receive any of his medication this morning. CBC normal. Electrolytes normal. BG elevated at 335. Urine without signs of infection. BAL negative. 2145: Reassessed patient, he states he is having pain when he urinates as well as mild abdominal pain. He is now able to tell me that he lives in [facility] , but is still confused about why he was found in the apartments across the street. He cannot remember whether he took his medication this morning. [facility] is agreeable to having him return. I have not found evidence of an acute problem. I do not find evidence of CVA, stroke, infection, electrolyte abnormality. His blood sugar is high, he has not taken his medication (metformin), but I do not think this has caused an alteration in his thinking. Reassessed patient and discussed plan for discharge. Return precautions provided ; patient is comfortable with this plan - Data Points Laboratory Results: Laboratory Results 07/09/17 20:10 07/09/17 20:10 Medications Given: Discontinued Medications Benztropine Mesylate (Cogentin) 0.5 mg PO EDNOW ONE Stop: 07/09/17 20:54 Last Admin: 07/09/17 21:17 Dose: 0.5 mg Docusate Sodium (Colace) 100 mg PO EDNOW ONE Stop: 07/09/17 20:54 Last Admin: 07/09/17 21:17 Dose: 100 mg Metformin HCl (Glucophage) 1,000 mg PO EDNOW ONE Stop: 07/09/17 20:53 Last Admin: 07/09/17 21:17 Dose: 1,000 mg Departure - Departure Disposition: Home, Routine, Self-Care Clinical Impression: Hyperglycemia Altered mental status Qualifiers: Altered mental status type: disorientation Qualified Code(s): R41.0 - Disorientation, unspecified Condition: Good Instructions: Altered Mental Status (ED), Diabetic Hyperglycemia (ED) Additional Instructions: Follow up with your primary care provider in the next week for unimproved symptoms. Return to the Emergency Department if you experience chest pain, shortness of breath, urinary complaints, confusion or other worsening symptoms. Referrals: Patient,NotPresent [Unknown] - As per Instructions Report Scribed for: Kassandra Winters Report Scribed by: Stephenie Rendon Date of Report: 07/09/17 Time of Report: 19:59 Physician Review and Approval Statement: 07/09/17 19:57 Portions of this note were transcribed by the medical officer. I, Dr. Kassandra Winters, personally performed the history, physical exam, and medical decision- making; and confirmed the accuracy of the information in the transcribed note.
[2017-07-09 20:07] VITALS: TEMP 97.7
[2017-07-09 20:18] LABS: % IMMATURE GRANULYOCYTES 0.5 % (0.0-1.1); ABSOLUTE IMMATURE GRANULOCYTES 0.05 10^3/uL (0.00-0.10); ADD DIFF? NO; ADD MORPH? NO; ADD SCAN? NO; ATYPICAL LYMPHOCYTE FLAG 10 (0-99); FRAGMENT RBC FLAG 0 (0-99); HEMATOCRIT 41.9 % (40.0-51.0); HEMOGLOBIN 14.7 g/dL (13.7-17.5); LEFT SHIFT FLG 0 (0-99); LIPEMIA HEMOLYSIS FLAG 90 (0-99); MEAN CELL HEMOGLOBIN 30.5 pg (27.9-34.1); MEAN CELL HEMOGLOBIN CONCENTR. 35.1 g/dL (32.4-36.7); MEAN CELL VOLUME 86.9 fL (81.5-99.8); MEAN PLATELET VOLUME 11.8 fL (8.7-11.7); PLATELET CLUMPS FLAG 0 (0-99); PLATELET COUNT 232 10^3/uL (150-400); RED BLOOD CELL COUNT 4.82 10^6/uL (4.40-6.38); RED CELL DISTRIBUTION WIDTH 13.2 % (11.5-15.2)
[2017-07-09 20:30] LABS: ANION GAP 21 mEq/L (8-16); CALCIUM 9.2 mg/dL (8.5-10.4); CARBON DIOXIDE 18 mEq/l (22-31); CHLORIDE 95 mEq/L (97-110); CREATININE 1.2 mg/dL (0.7-1.3); GLOMERULAR FILTRATION RATE 59; GLUCOSE 335 mg/dL (70-100); POTASSIUM 4.4 mEq/L (3.5-5.2); SODIUM 134 mEq/L (134-144)
--- NOTE | 2017-07-09 20:30 | CPEKG ---
Heart Rate: 88 RR Interval: 682 P-R Interval: 216 QRSD Interval: 90 QT Interval: 380 QTC Interval: 460 P [place]: 40 QRS [place]: -12 T Wave [place]: 78 EKG Severity - NORMAL ECG - EKG Impression: SINUS RHYTHM Electronically Signed By: Kassandra Winters 09-Jul-2017 23:23:16
[2017-07-09] MEDS ORDERED: metFORMIN HCL 500 MG TAB PO ONE (20:52)
[2017-07-09] MEDS ORDERED: DOCUSATE SODIUM 100 MG CAP PO ONE (20:53)
[2017-07-09] MEDS ORDERED: BENZTROPINE MESYLATE 1 MG TAB PO ONE (20:53)
[2017-07-09 21:44] LABS: ETHANOL SERUM < 10 mg/dL (0-10)
[2017-07-09 21:54] LABS: COLOR YELLOW; LEUKOCYTE ESTERASE,URINE NEGATIVE (NEGATIVE); NITRITE,URINE NEGATIVE (NEGATIVE)
[2017-07-09 22:06] LABS: MUCUS TRACE /lpf (NONE-1+)
[2017-07-09 23:24] VITALS: BP 147/85; PULSE 70; RESP 18; O2SAT 91
== END 2017-07-09 23:23 | disposition home or self-care (01) ==
LOC: EDUNIT#
DX: R41.0 Disorientation, unspecified (principal); E11.65 Type 2 diabetes mellitus with hyperglycemia; J44.9 Chronic obstructive pulmonary disease, unspecified; I13.0 Hypertensive heart and chronic kidney disease with heart failure and stage 1 through stage 4 chronic kidney disease, or unspecified chronic kidney disease; N18.9 Chronic kidney disease, unspecified; F17.200 Nicotine dependence, unspecified, uncomplicated; I50.9 Heart failure, unspecified; Z79.84 Long term (current) use of oral hypoglycemic drugs; Z79.4 Long term (current) use of insulin
CPT/HCPCS: G0480

== ENCOUNTER 2017-07-12 19:34 | Emergency (ER) | payer OTHER ==
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
[2017-07-12 20:05] LABS: % IMMATURE GRANULYOCYTES 0.3 % (0.0-1.1); ABSOLUTE IMMATURE GRANULOCYTES 0.03 10^3/uL (0.00-0.10); ADD DIFF? NO; ADD MORPH? NO; ADD SCAN? NO; ATYPICAL LYMPHOCYTE FLAG 20 (0-99); FRAGMENT RBC FLAG 0 (0-99); HEMATOCRIT 43.8 % (40.0-51.0); HEMOGLOBIN 15.2 g/dL (13.7-17.5); LEFT SHIFT FLG 0 (0-99); LIPEMIA HEMOLYSIS FLAG 90 (0-99); MEAN CELL HEMOGLOBIN 30.5 pg (27.9-34.1); MEAN CELL HEMOGLOBIN CONCENTR. 34.7 g/dL (32.4-36.7); MEAN CELL VOLUME 87.8 fL (81.5-99.8); MEAN PLATELET VOLUME 11.4 fL (8.7-11.7); PLATELET CLUMPS FLAG 0 (0-99); PLATELET COUNT 223 10^3/uL (150-400); RED BLOOD CELL COUNT 4.99 10^6/uL (4.40-6.38); RED CELL DISTRIBUTION WIDTH 13.2 % (11.5-15.2)
[2017-07-12 20:17] VITALS: BP 141/74; PULSE 76; RESP 18; TEMP 98.1; O2SAT 93
== END 2017-07-12 20:20 | disposition home or self-care (01) ==
LOC: EDUNIT#
DX: F69 Unspecified disorder of adult personality and behavior (principal); E11.9 Type 2 diabetes mellitus without complications; I50.9 Heart failure, unspecified; J44.9 Chronic obstructive pulmonary disease, unspecified; F17.200 Nicotine dependence, unspecified, uncomplicated; Z79.4 Long term (current) use of insulin; Z79.84 Long term (current) use of oral hypoglycemic drugs

== ENCOUNTER 2017-10-15 03:33 | Emergency (ER) | payer OTHER, MEDICAID ==
[2017-10-15 03:45] VITALS: TEMP 98.2
--- NOTE | 2017-10-15 05:22 | EDPHY ---
H & P Stated Complaint: [facility] Fall AT [facility] Time Seen by Provider: 10/15/17 04:31 HPI/ROS: HPI The patient presents with mechanical fall which occurred just prior to arrival at [facility]. He is brought in by ambulance. He walks the hallways at night and does not sleep well. He was in front of the nurse's station when nurses witnessed him trip and fall forward, scraping his head on a counter top. He did not lose consciousness, he was able to get up himself. He denied any complaints. He was noted to have an abrasion on his forehead, thus he was transferred here for further care. The patient says he feels well, does not have a headache, vomiting, vision changes, any other complaints. He says he is not feeling lightheaded, dizzy, with any chest pain or shortness of breath. REVIEW OF SYSTEMS Constitutional: No fever, no chills. Eyes: No discharge. ENT: No sore throat. Cardiovascular: No chest pain, no palpitations. Respiratory: No cough, no shortness of breath. Gastrointestinal: No abdominal pain, no vomiting. Genitourinary: No hematuria. Musculoskeletal: No back pain. Skin: No rashes. Neurological: No headache. PMHx: Schizophrenia, chronic kidney disease, COPD, diabetes Soc Hx: Resides at [facility] PHYSICAL General Appearance: Alert, no distress Eyes: Pupils equal and round no pallor or injection ENT, Mouth: Mucous membranes moist Respiratory: There are no retractions, lungs are clear to auscultation Cardiovascular: Regular rate and rhythm Gastrointestinal: Abdomen is soft and non-tender, no masses, bowel sounds normal Neurological: A&O, moves all extremities Skin: Warm and dry, abrasion to left forehead which is about 10 cm in linear, no laceration is present Musculoskeletal: Neck is supple non tender Extremities: symmetrical, full range of motion Psychiatric: Patient is oriented X 3, there is no agitation Source: Patient, EMS Exam Limitations: Physical impairment - Personal History Current Tetanus Diphtheria and Acellular Pertussis (TDAP): Yes - Medical/Surgical History Hx Asthma: No Hx Chronic Respiratory Disease: Yes Hx Diabetes: Yes Hx Cardiac Disease: Yes Hx Renal Disease: Yes Hx Cirrhosis: No Hx Alcoholism: No Hx HIV/AIDS: No Hx Splenectomy or Spleen Trauma: No Other PMH: AMS, SCHIZOPHRENIA, CHRONIC KIDNEY DISEASE, CHF, TYPE 2 DIABETIC, COPD, GERD, BPH, HYPERLIPIDEMIA, VIT D DEFICIENCY - Social History Smoking Status: Light smoker Constitutional: Initial Vital Signs Temperature (C) 36.8 C 10/15/17 03:38 Heart Rate 93 10/15/17 03:38 Respiratory Rate 18 10/15/17 03:38 Blood Pressure 122/68 H 10/15/17 03:38 O2 Sat (%) 93 10/15/17 03:38 O2 Delivery Mode Room Air Allergies/Adverse Reactions: thiopental Allergy (Verified 10/15/17 03:37) Home Medications: Medication Instructions Recorded Benztropine Mesylate 0.5 mg PO BID 11/20/16 Levothyroxine [Synthroid 75 mcg 75 mcg PO DAILY06 11/20/16 (*)] Metformin HCl [Metformin 1000 mg] 1,000 mg PO BID 11/20/16 Acetaminophen [Tylenol 325mg (*)] 650 mg PO DAILY PRN 04/30/17 Divalproex ER [Depakote ER 500 MG 2,000 mg PO DAILY 04/30/17 (*)] Insulin Detemir [Levemir] 20 unit SQ BID 04/30/17 Lisinopril [Zestril 20 mg (*)] 20 mg PO DAILY 04/30/17 Nystatin Powder [Mycostatin Powder] 1 johanna TP BID 04/30/17 Oxybutynin Chloride Xl [Ditropan 5 mg PO DAILY 04/30/17 Xl 5mg (*)] Paliperidone Palmitate [Invega 156 mg IM Q30D 04/30/17 Sustenna (*)] QUEtiapine FUMARATE [Seroquel 200 200 mg PO DAILY 04/30/17 mg (*)] Azithromycin [Zithromax] 500 mg PO DAILY tab 05/01/17 Ipratropium/Albuterol [Duoneb (*)] 3 ml IH Q6HRS deyvial 05/01/17 Medical Decision Making Differential Diagnosis: 72-year-old man with multiple medical problems and schizophrenia presents with a fall that occurred just prior to arrival while at [facility]. He denies any complaints currently. He does have an abrasion to his forehead. He feels well. His fall was witnessed by several nurses at his assisted. In the emergency department, patient was monitored. CT scan of his head was performed which was unremarkable. He is able to ambulate around the department without any difficulty afterwards. He will be discharged back to [facility]. I do not feel the need to pursue any blood testing given lack of symptoms currently. Departure - Departure Disposition: Home, Routine, Self-Care Clinical Impression: Fall, Scalp abrasion Condition: Good Instructions: Fall Prevention for Older Adults (ED) Referrals: HRAINDER CAMARENA [Other] - As per Instructions
[2017-10-15 06:10] VITALS: BP 119/71; PULSE 85; RESP 16; O2SAT 96
--- NOTE | 2017-10-15 12:20 | ASMTCMCOM ---
CM Note CM Note Notes: [facility] nurseJess called for information about tests and discharge for pt. Pt was DC back to [facility] earlier in the morning without documentation. This SW provided information regarding testing and labs. Date Signed: 10/15/2017 12:19 PM Electronically Signed By:Rafa Wise LCSW
== END 2017-10-15 06:10 | disposition home or self-care (01) ==
LOC: EDUNIT#
DX: S00.01XA Abrasion of scalp, initial encounter (principal); I50.9 Heart failure, unspecified; E11.9 Type 2 diabetes mellitus without complications; J44.9 Chronic obstructive pulmonary disease, unspecified; N18.9 Chronic kidney disease, unspecified; F17.200 Nicotine dependence, unspecified, uncomplicated; Z79.4 Long term (current) use of insulin; W01.198A Fall on same level from slipping, tripping and stumbling with subsequent striking against other object, initial encounter; Y92.89 Other specified places as the place of occurrence of the external cause; Y93.01 Activity, walking, marching and hiking

== ENCOUNTER 2018-05-23 11:22 | Observation (INO) | payer OTHER ==
[2018-05-23] MEDS ORDERED: NS 1,000 ML IV ONE (11:34)
[2018-05-23 11:52] LABS: PLATELET COUNT 165 10^3/uL (150-400)
--- NOTE | 2018-05-23 11:54 | EDPHY ---
H & P Stated Complaint: Multiple falls recently. Time Seen by Provider: 05/23/18 11:33 HPI/ROS: CHIEF COMPLAINT: Syncope, right elbow pain HISTORY OF PRESENT ILLNESS: The patient is brought to the emergency department after a syncopal episode. The patient was observed to fall. He struck his right elbow. Patient has a history of Alzheimer's. He believes that he fell while getting into a chair. By report the patient has had a history of multiple falls recently. The patient was noted to be in a narrow complex regular tachycardia in the 130s by paramedics. The patient is unable to provide much meaningful historical information secondary to his Alzheimer's disease. Aside from right elbow discomfort he has no acute complaints. REVIEW OF SYSTEMS: A comprehensive 10 point review of systems is otherwise negative aside from elements mentioned in the history of present illness. Source: Patient Exam Limitations: No limitations - Personal History Current Tetanus Diphtheria and Acellular Pertussis (TDAP): Unsure - Medical/Surgical History Hx Asthma: No Hx Chronic Respiratory Disease: Yes Hx Diabetes: Yes Hx Cardiac Disease: Yes Hx Renal Disease: Yes Hx Cirrhosis: No Hx Alcoholism: No Hx HIV/AIDS: No Hx Splenectomy or Spleen Trauma: No Other PMH: AMS, SCHIZOPHRENIA, CHRONIC KIDNEY DISEASE, CHF, TYPE 2 DIABETIC, COPD, GERD, BPH, HYPERLIPIDEMIA, VIT D DEFICIENCY - Social History Smoking Status: Light smoker - Physical Exam Exam: General Appearance: Obese male, deconditioned, pallorous Eyes: Pupils equal and round no pallor or injection ENT, Mouth: Mucous membranes moist Respiratory: There are no retractions, lungs are clear to auscultation Cardiovascular: Regular rate and rhythm Gastrointestinal: Abdomen is soft and nontender, no masses, bowel sounds normal Neurological: Alert and oriented x1 likely baseline, no gross motor deficits appreciated Skin: Warm and dry, no rashes Musculoskeletal: Neck is supple nontender Extremities: Mild tenderness to palpation over the right elbow Psychiatric: Patient is oriented X 3, there is no agitation Constitutional: Initial Vital Signs Temperature (C) 36.6 C 05/23/18 11:27 Heart Rate 138 H 05/23/18 11:27 Respiratory Rate 18 05/23/18 11:27 Blood Pressure 88/61 L 05/23/18 11:27 O2 Sat (%) 94 05/23/18 11:27 O2 Delivery Mode Room Air Allergies/Adverse Reactions: thiopental Allergy (Verified 10/15/17 03:37) Home Medications: Medication Instructions Recorded Benztropine Mesylate 0.5 mg PO BID 11/20/16 Metformin HCl [Metformin 1000 mg] 1,000 mg PO BID 11/20/16 Acetaminophen [Tylenol 325mg (*)] 650 mg PO DAILY PRN 04/30/17 Divalproex ER [Depakote ER 500 MG 2,000 mg PO DAILY 04/30/17 (*)] Insulin Detemir [Levemir] 20 unit SQ BID@,16 04/30/17 Lisinopril [Zestril 20 mg (*)] 20 mg PO DAILY 04/30/17 Paliperidone Palmitate [Invega 156 mg IM Q21D 04/30/17 Sustenna (*)] Docusate Sodium [Colace 100 MG (*)] 100 mg PO BID 05/23/18 Indapamide [Indapamide 2.5 mg (*)] 2.5 mg PO DAILY 05/23/18 Levothyroxine [Synthroid 88 mcg 88 mcg PO DAILY06 05/23/18 (*)] Quetiapine Fumarate [Seroquel Xr] 300 mg PO DAILY 05/23/18 Medical Decision Making - Diagnostics EKG Interpretation: EKG: Complete interpretation has been separately recorded in the [employer] archive. Summary impression: Junctional tachycardia, rate 130 Imaging Results: Imaging Impressions Elbow X-Ray 05/23/18 11:54 Impression: Negative. No acute fracture or effusion. CT head without contrast: Negative for intracranial hemorrhage or skull fracture Chest x-ray AP: Images reviewed by myself, negative for acute disease or traumatic injury ED Course/Re-evaluation: The patient presents to the ED with a reported history of falling and syncope at his detention. The patient has Alzheimer's disease and is unable to provide much in the way of significant history. The patient has noted to be going in and out of a narrow complex tachycardia in the emergency department. The patient complained of some right elbow discomfort from his syncopal episode today. The patient did undergo a head CT scan given his chronic dementia and history of falling which demonstrated no evidence of an acute intracranial hemorrhage. Chest x-ray demonstrates no evidence of pneumonia or traumatic injury. Laboratory studies demonstrate only mild chronic renal insufficiency with a creatinine of 1.6 The patient did receive IV fluids in the emergency department. Given his history of the intermittent arrhythmia with syncope and falling I do feel he should be admitted to the hospital for further characterization of the timing in frequency of the arrhythmia. Consultation is made with the hospitalist service. The patient will be admitted to a monitored bed this evening. Differential Diagnosis: Differential diagnosis considered includes dehydration, arrhythmia, intracranial hemorrhage, supraventricular tachycardia, atrial arrhythmia, myocardial infarction, pneumonia, elbow fracture - Data Points Laboratory Results: Laboratory Results 05/23/18 11:39 05/23/18 11:39 05/23/18 05/23/18 05/23/18 11:39 11:39 11:39 WBC 8.91 10^3/uL 10^3/uL (3.80-9.50) RBC 5.09 10^6/uL 10^6/uL (4.40-6.38) Hgb 15.3 g/dL g/dL (13.7-17.5) Hct 44.6 % % (40.0-51.0) MCV 87.6 fL fL (81.5-99.8) MCH 30.1 pg pg (27.9-34.1) MCHC 34.3 g/dL g/dL (32.4-36.7) RDW 14.4 % % (11.5-15.2) Plt Count 165 10^3/uL 10^3/uL (150-400) MPV 11.5 fL fL (8.7-11.7) Neut % (Auto) 73.1 % % (39.3-74.2) Lymph % (Auto) 14.9 % L % (15.0-45.0) [place] % (Auto) 10.2 % % (4.5-13.0) Eos % (Auto) 0.8 % % (0.6-7.6) Baso % (Auto) 0.4 % % (0.3-1.7) Nucleat RBC Rel Count 0.0 % % (0.0-0.2) Absolute Neuts (auto) 6.51 10^3/uL H 10^3/uL (1.70-6.50) Absolute Lymphs (auto) 1.33 10^3/uL 10^3/uL (1.00-3.00) Absolute Monos (auto) 0.91 10^3/uL H 10^3/uL (0.30-0.80) Absolute Eos (auto) 0.07 10^3/uL 10^3/uL (0.03-0.40) Absolute Basos (auto) 0.04 10^3/uL 10^3/uL (0.02-0.10) Absolute Nucleated RBC 0.00 10^3/uL 10^3/uL (0-0.01) Immature Gran % 0.6 % % (0.0-1.1) Immature Gran # 0.05 10^3/uL 10^3/uL (0.00-0.10) Sodium 139 mEq/L mEq/L (135-145) Potassium 4.3 mEq/L mEq/L (3.3-5.0) Chloride 98 mEq/L mEq/L (97-110) Carbon Dioxide 26 mEq/l mEq/l (22-31) Anion Gap 15 mEq/L mEq/L (8-16) BUN 31 mg/dL H mg/dL (7-23) Creatinine 1.6 mg/dL H mg/dL (0.7-1.3) Estimated GFR 42 Glucose 162 mg/dL H mg/dL (70-100) Calcium 9.6 mg/dL mg/dL (8.5-10.4) Troponin I < 0.012 ng/mL ng/mL (0.000-0.034) Medications Given: Discontinued Medications Sodium Chloride (Ns) 1,000 mls @ 0 mls/hr IV EDNOW ONE; Wide Open PRN Reason: Protocol Stop: 05/23/18 11:35 Last Admin: 05/23/18 11:35 Dose: 1,000 mls Departure - Departure Disposition: [facility] Inpatient Acute Clinical Impression: Syncope, Tachycardia, Elbow contusion, Alzheimers disease Condition: Good
--- NOTE | 2018-05-23 13:33 | CPEKG ---
Test Reason : OPEN Blood Pressure : / mmHG Vent. Rate : 129 BPM Atrial Rate : 000 BPM P-R Int : 000 ms QRS Dur : 092 ms QT Int : 320 ms P-R-T Axes : 000 -35 057 degrees QTc Int : 469 ms Junctional tachycardia Left axis deviation Confirmed by Home Talamantes ([id number]) on 05/23/2018 1:33:01 PM Referred By: Confirmed By:Home Talamantes
[2018-05-23] MEDS ORDERED: D50W 25 GM/50 ML SYR IVP PRN (14:42)
[2018-05-23] MEDS ORDERED: PALIPERIDONE PALMITATE 156 MG/ML SYR IM SCH (14:45)
[2018-05-23] MEDS ORDERED: NS 1,000 ML IV SCH (14:45)
[2018-05-23] MEDS ORDERED: ACETAMINOPHEN 325 MG TAB PO PRN (14:53)
--- NOTE | 2018-05-23 15:40 | GHP ---
DATE OF ADMISSION: 05/23/2018 CHIEF COMPLAINT: Fall. HPI: The patient is a 72-year-old currently in long-term care at [facility]. He was witnessed to fall and was brought to the emergency room for further evaluation. When the urgent care nurse practitioner arrived, they did notice he was in a narrow complex tachycardia intermittently. All the history is gleaned from reading the ER note. The has a history of schizophrenia and Alzheimer disease and he is somewhat agitated and is not providing any history. Apparently, he has a history of falling and syncope at his residential. He has Alzheimer disease and schizophrenia. He also has hypertension. When he fell, he struck his right elbow and complained of elbow pain in the emergency department. Currently, he is not complaining of anything, although he refuses to answer most of my questions and told me to "f--k off." REVIEW OF SYSTEMS: Unobtainable due to patient agitation. PAST MEDICAL HISTORY: 1. Schizophrenia. 2. Chronic kidney disease. 3. Type 2 diabetes. 4. COPD. 5. Alzheimer disease. 6. Gastroesophageal reflux disease. 7. BPH. 8. Dyslipidemia. 9. Vitamin D deficiency. SOCIAL HISTORY: He currently lives at [facility] in long-term care. FAMILY HISTORY: Unobtainable. CURRENT MEDICATIONS: Reviewed, please see med reconciliation form. ALLERGIES: To thiopental. PHYSICAL EXAMINATION: VITAL SIGNS: He is afebrile. Heart rate 122-138, when he is tachycardic, then he goes into sinus rhythm at 80. Blood pressure 112/ 75. He is 95% on room air. GENERAL: he is an obese 72-year-old man. He is in no obvious distress, but somewhat agitated. HEENT: Pupils are equal. Extraocular movements intact. Mucous membranes are moist. Speech is fluent. NECK: Supple. HEART: Tachycardic and regular. No obvious murmurs. No obvious bruits. LUNGS: Clear bilaterally. ABDOMEN: Soft without tenderness. EXTREMITIES: No clubbing, cyanosis, or edema. He has a small skin tear on his left mae present on admission. MUSCULOSKELETAL: No obvious joint effusions or deformities. NEUROLOGIC: He is moving all 4 extremities. PSYCH: He is somewhat agitated and uncooperative with my history or exam. LABORATORY/IMAGING: CBCs within normal limits. Chemistry shows a BUN of 31 and creatinine of 1.6. I do not have any recent creatinine. Glucose is 162. Initial troponin negative. Head CT without contrast shows nothing acute. Chest x-ray negative. Elbow x-ray, no fracture. Electrocardiogram personally reviewed and interpreted, shows tachycardia, likely junctional rhythm. ASSESSMENT/PLAN: 1. 72-year-old presents with frequent falls. Has been shown to be going in and out of a junctional rhythm with a tachycardia of 120-130. Certainly, this may be contributing to his falls. Plan will be to repeat an EKG while in sinus rhythm. Consider adding a beta james to see if this controls his arrhythmia. If it does not, then could consider getting an echocardiogram in the a.m. with consideration of other medications to help control his tachycardia. 2. Diabetes. Continue with home dose of lispro and Levemir and check blood sugars. 3. Hypertension. Currently hypotensive, may be related to his tachycardia. We will hold his lisinopril and his indapamide for now. 4. Acute on chronic renal failure, elevated creatinine. Unfortunately, I do not have a recent baseline. Will give a L of intravenous fluids and repeat this in the a.m. without further evaluation at this time and hold his lisinopril. 5. Schizophrenia. On multiple psychoactive drugs. Apparently he has been refusing his medications at [facility] and they have considered an M1 hold. He is not decisional and they are also looking into a guardian. Currently he is agitated but not trying to leave. I will check a Depakote level and check a TSH level. If he tries to leave I will place on a hold and send to ICU and get psyche consult. For now will treat his immediate problem, the tachycardia and plan to send him back to [facility] as soon as possible. 6. Hypothyroidism, on Synthroid. Repeat TSH level. 7. Advanced Alzheimer's Patient is not decisional, he is listed as Full Code at [facility], will continue for now. /[id number]/MODL MTDD
[2018-05-23] MEDS: ATENOLOL 25 MG TAB PO SCH ×2 (17:08→23:43)
[2018-05-23] MEDS: INSULIN GLARGINE 100 UNITS/ML UNIT SC SCH (17:10)
[2018-05-23] MEDS: INSULIN LISPRO 100 UNIT/ML SC SCH (18:26)
[2018-05-23] MEDS ORDERED: LORazepam 2 MG/ML INJ IVP PRN (19:23)
[2018-05-23] MEDS: BENZTROPINE MESYLATE 1 MG TAB PO SCH (21:00)
[2018-05-23] MEDS: DOCUSATE SODIUM 100 MG CAP PO SCH (21:00)
[2018-05-24] MEDS ORDERED: LORazepam 0.5 MG TAB PO ONE (02:50)
[2018-05-24] MEDS ORDERED: LEVOTHYROXINE 88 MCG TAB PO SCH (06:00)
[2018-05-24] MEDS: INSULIN GLARGINE 100 UNITS/ML UNIT SC SCH ×2 (07:29→16:29)
[2018-05-24] MEDS: INSULIN LISPRO 100 UNIT/ML SC SCH ×2 (08:12→12:22)
[2018-05-24] MEDS: ATENOLOL 25 MG TAB PO SCH (08:18)
[2018-05-24] MEDS: DOCUSATE SODIUM 100 MG CAP PO SCH (08:18)
[2018-05-24] MEDS: BENZTROPINE MESYLATE 1 MG TAB PO SCH (08:19)
[2018-05-24] MEDS ORDERED: Quetiapine Fumarate [Seroquel Xr] 300 MG PO SCH (09:00)
[2018-05-24] MEDS ORDERED: LISINOPRIL 20 MG TAB PO SCH (09:00)
[2018-05-24] MEDS ORDERED: DIVALPROEX ER 500 MG TAB PO SCH (09:00)
[2018-05-24] MEDS ORDERED: INDAPAMIDE 2.5 MG TAB PO SCH (09:00)
--- NOTE | 2018-05-24 09:01 | ASMTLACE ---
JOSELIN Acuity / Level of Answers: Yes Care: Did the patient have an inpatient admission? Comorbidities - select Answers: Chronic pulmonary disease all that apply Congestive heart failure Dementia Diabetes (uncontrolled or controlled) Moderate or severe liver or renal disease Other Notes: GERD; HLD # of Emergency department Answers: 1-2 visits in the last 6 months Social determinants Answers: Mental health diagnosis (anxiety, depression, pers onality disorders, etc.) Score: 20 Date Signed: 05/24/2018 09:00 AM Electronically Signed By:Jennifer Menon
[2018-05-24] MEDS ORDERED: QUEtiapine FUMARATE 300 MG TAB PO SCH (10:15)
--- NOTE | 2018-05-24 11:50 | HOSPPROG ---
Hospitalist Progress Note Assessment/Plan: 72-year-old sent from [facility] with falls. Found to be tachycardic with a junctional rhythm. He was started on a beta-james, atenolol which has minimal blood brain barrier penetration and has done better without further tachycardia is overnight. From medical standpoint I feel he is stable for discharge back to [facility] however he has been quite belligerent and uncooperative here in the hospital due to his under treated schizophrenia. Patient has been refusing his medications # narrow complex tachycardia, controlled with medications. Continue atenolol as an outpatient will monitor heart rate, currently stable with a low of 53 otherwise no heart rates greater than 120 * Continue atenolol at current dose could potentially reduce the dose as an outpatient if he becomes bradycardic at [facility] * Blood pressure stable will discontinue his indapamide and lisinopril # Alzheimer's dementia, patient is not decisional per nursing facility # schizophrenia on multiple psychoactive medications he apparently has been refusing these at the senior care, he has refuse some and agreed to take some here in the hospital. * TLC evaluation prior to discharge back to [facility] regarding need for inpatient psych * If they clear him he can go back to [facility] Subjective: Patient not cooperative Objective: Vital Signs Temp Pulse Resp BP Pulse Ox 36.3 C 53 L 16 133/86 H 92 05/24/18 07:38 05/24/18 07:38 05/24/18 07:38 05/24/18 07:38 05/24/18 07:38 05/23/18 05/24/18 05/25/18 05:59 05:59 05:59 Intake Total 1263 Balance 1263 - Physical Exam Constitutional: chronically ill appearing Cardiovascular: regular rate and rhythym Respiratory: no respiratory distress Psychiatric: agitated ICD10 Worksheet Patient Problems: Problems Problem Status Onset Acute exacerbation of congestive heart failure Acute Hypoxia Acute Altered mental status Acute Hyperglycemia Acute Syncope Acute Tachycardia Acute Elbow contusion Acute Alzheimers disease Acute
--- NOTE | 2018-05-24 12:23 | ASMTLCPROG ---
Notes Note: Notes: Reivew of chart and noted pt on medical floor due to pt fall at [facility]. Has history of Alzheimer's and schizophrenia. Pt currently not on M1 hold and does not appear to meet 27-65 crieteria requiring psychiatric hospitalization as pt does not appear to be an imminent risk of harm to self/others/gravely disabled due to a mental illness condition. Informed 2W CM named Michelle. Date Signed: 05/24/2018 11:59 AM Electronically Signed By:Gurjit Otero
[2018-05-24 12:43] VITALS: BP 147/72
--- NOTE | 2018-05-24 14:35 | ASMTCMCOM ---
CM Note CM Note Notes: 05/24/2018 Case Management Note Discussed pt during rounds this morning. Pt evaluated by TLC, per TLC pt is iinappropriate for inpatient psych admission and can return to [facility]. Discussed with farhan Jones for [facility]. Robert reports pt is at baseline for behaviors. Faxed updates to [facility]. Case Management d/c poc: anticipating return to [facility]. Case Management to follow. Date Signed: 05/24/2018 02:35 PM Electronically Signed By:Michelle Forman RN
--- NOTE | 2018-05-24 14:39 | PDIAF ---
- Diagnosis Diagnosis: tachycardia Code Status: Full Code - Medication Management Discharge Medications: Medications to Continue on Transfer Benztropine Mesylate 0.5 mg PO BID 11/20/16 [Last Taken 05/23/18] Metformin HCl [Metformin 1000 mg] 1,000 mg PO BID 11/20/16 [Last Taken 05/23/18] Acetaminophen [Tylenol 325mg (*)] 650 mg PO DAILY PRN 04/30/17 [Last Taken Unknown] Divalproex ER [Depakote ER 500 MG (*)] 2,000 mg PO DAILY 04/30/17 [Last Taken ] Insulin Detemir [Levemir] 20 unit SQ BID@08,16 04/30/17 [Last Taken 05/23/18] Paliperidone Palmitate [Invega Sustenna (*)] 156 mg IM Q21D 04/30/17 [Last Taken 04/17/17] Docusate Sodium [Colace 100 MG (*)] 100 mg PO BID 05/23/18 [Last Taken 05/23/18] Levothyroxine [Synthroid 88 mcg (*)] 88 mcg PO DAILY06 05/23/18 [Last Taken 09/09] Quetiapine Fumarate [Seroquel Xr] 300 mg PO DAILY 05/23/18 [Last Taken 05/23/18] Atenolol [Tenormin 25 mg (*)] 12.5 mg PO BID tab 05/24/18 [Last Taken Unknown] Discharge Medications: Refer to the Discharge Home Medication list for PRN reason. - Orders Services needed: Registered Nurse, Certified Process Checker, Master Shirring Machine Operator , Physical Therapy Isolation Type: None Diet Recommendation: ADA 2200 consistent carb Diet Texture: Regular Texture Diet - Labs/Radiology Other Lab Name, Date and Time: TSH in 2 weeks, slightly elevated TSH in hospital , - Follow Up Care Current Providers and Referrals: ONI TAYLOR [Primary Care Provider] - As per Instructions
--- NOTE | 2018-05-24 14:56 | GDS ---
DIAGNOSES: 1. Tachyarrhythmia, junctional tachycardia resolved with atenolol. 2. Hypertension, controlled. 3. Schizophrenia, chronic. 4. Advanced Alzheimer's. HOSPITAL COURSE: Mr. Cortes is a 72-year-old transferred from [facility] with falling. He was note d to have a tachyarrhythmia when the engineer technician came and was transported to the hospital. EKG showed a mk ctional tachycardia. This resolved spontaneously. He was started on a beta james, and he had no f urther episodes of tachycardia while in the hospital. He will be discharged home on the atenolol. H is lisinopril and indapamide were both discontinued since he was on the atenolol. Recommend monitori ng the blood pressure and if his blood pressure gets elevated, then he can resume the lisinopril. He did have a TSH checked here in the hospital. It was mildly elevated, however, I did not change his dosing. I recommend a repeat TSH in a couple weeks. If it remains elevated or even higher, then the y can adjust dosing as necessary. It is unclear to me how compliant the patient has been with his th yroid medicine as an outpatient. Certainly, this level of TSH would not be responsible for his arrhy thmia. CONDITION ON DISCHARGE: Good. Vital signs stable. DISCHARGE MEDICATIONS: Please see discharge medication form. FOLLOWUP: He will be discharged back to [facility] with followup with Dr. Jose Miguel Smith. /[id number]/MODL
--- NOTE | 2018-05-24 15:24 | ASMTDCNOTE ---
Case Management Discharge Discharge Order Complete? Answers: Yes Patient to Obtain Answers: Other Notes: [facility] Medications Transportation Arranged Answers: Other Notes: [facility] wheelchair transport arranged by Robert at [facility] Transport will Pick (Date 05/24/2018 05:00 PM & Time) Faxed Final Orders Answers: Yes Notes: to [facility] Agency/Facility Transfer Answers: Yes Notes: to [facility] Report Printed & Faxed to Receiving Agency Discharge Comments Notes: 05/24/2018 Case Management Note Pt to return to [facility] where he resides. Faxed discharge orders via [employer] to [facility]. Robert from [facility] arranged wheelchair with [employer] transport. supervisor mattress and [employer] at 1700. Notified RN. Date Signed: 05/24/2018 03:23 PM Electronically Signed By:Michelle Forman RN
--- NOTE | 2018-05-24 15:24 | ASDISCHSUM ---
Discharge Information Plan Status:SNF Medically Cleared to Leave:05/24/2018 Discharge Date:05/24/2018 CM D/C Disposition:[facility] ADT D/C Disposition:[facility] Facility Projected Discharge Date:05/24/2018 11:00 AM Transportation at D/C:Wheelchair Van Discharge Delay Reason: Follow-Up Date:05/24/2018 11:00 AM Discharge Slot: Final Diagnosis: Placement Information Referral Type:*Long Term/SNF Referral ID:-[id number] Provider Name:Jabier Heard/EmiliaZighraROOPA Address 1:[address] Address 2: Fax Number: Margret:Jabier Selection Factors: State:[place] Patient Contact Information Contact Name:ANDREA Relationship: Address: Home Phone: Work Phone: City: [facility] Phone: [facility] Code: Email: Financial Information Financial Class:Medicare Advantage Plans Primary Plan Desc:[facility] [employer] Primary Plan Number:[id number] Secondary Plan Desc: Secondary Plan Number: Assessment Information LACE LACE Acuity / Level of Answers: Yes Care: Did the patient have an inpatient admission? Comorbidities - select Answers: Chronic pulmonary disease all that apply Congestive heart failure Dementia Diabetes (uncontrolled or controlled) Moderate or severe liver or renal disease Other Notes: GERD; HLD # of Emergency department Answers: 1-2 visits in the last 6 months Social determinants Answers: Mental health diagnosis (anxiety, depression, pers onality disorders, etc.) Score: 20 Date Signed: 05/24/2018 09:00 AM Electronically Signed By:Jennifer Menon TLC Progress Note Notes Note: Notes: Reivew of chart and noted pt on medical floor due to pt fall at [facility]. Has history of Alzheimer's and schizophrenia. Pt currently not on M1 hold and does not appear to meet 27-65 crieteria requiring psychiatric hospitalization as pt does not appear to be an imminent risk of harm to self/others/gravely disabled due to a mental illness condition. Informed 2W CM named Michelle. Date Signed: 05/24/2018 11:59 AM Electronically Signed By:Gurjit Otero [facility] CM Progress Note CM Note CM Note Notes: 05/24/2018 Case Management Note Discussed pt during rounds this morning. Pt evaluated by TLC, per TLC pt is iinappropriate for inpatient psych admission and can return to [facility]. Discussed with farhan Jones for [facility]. Robert reports pt is at baseline for behaviors. Faxed updates to [facility]. Case Management d/c poc: anticipating return to [facility]. Case Management to follow. Date Signed: 05/24/2018 02:35 PM Electronically Signed By:Michelle Forman RN Case Management Discharge Plan Note Case Management Discharge Discharge Order Complete? Answers: Yes Patient to Obtain Answers: Other Notes: [facility] Medications Transportation Arranged Answers: Other Notes: [employer] wheelchair transport arranged by Robert at [facility] Transport will Pick (Date 05/24/2018 05:00 PM & Time) Faxed Final Orders Answers: Yes Notes: to [facility] Agency/Facility Transfer Answers: Yes Notes: to [facility] Report Printed & Faxed to Receiving Agency Discharge Comments Notes: 05/24/2018 Case Management Note Pt to return to [facility] where he resides. Faxed discharge orders via [employer] to [facility]. Robert from [facility] arranged wheelchair with [employer]. city supervisor at 1700. Notified RN. Date Signed: 05/24/2018 03:23 PM Electronically Signed By:Michelle Forman RN Intervention Information
== END 2018-05-24 18:15 ==
LOC: EDUNIT# → INTOOBSV 12:57 → F2W 14:22
PROVIDERS: ADMIT Internal Medicine; ATTEND Internal Medicine
DX: R55 Syncope and collapse (principal); Z91.81 History of falling; S50.01XA Contusion of right elbow, initial encounter; W19.XXXA Unspecified fall, initial encounter; G30.9 Alzheimer's disease, unspecified; F02.80 Dementia in other diseases classified elsewhere, unspecified severity, without behavioral disturbance, psychotic disturbance, mood disturbance, and anxiety; E11.22 Type 2 diabetes mellitus with diabetic chronic kidney disease; N18.9 Chronic kidney disease, unspecified; E78.5 Hyperlipidemia, unspecified; J44.9 Chronic obstructive pulmonary disease, unspecified; F20.9 Schizophrenia, unspecified; E03.9 Hypothyroidism, unspecified; E86.9 Volume depletion, unspecified
CPT/HCPCS: 70450; 71045; 73080; 93005; 97116; 97162; 99285; G8978; G8979; J1815; J2426

== ENCOUNTER 2018-07-23 10:18 | Emergency (ER) | payer OTHER, MEDICAID ==
[2018-07-23] MEDS ORDERED: TDAP ADULT 0.5 ML INJ (BOOSTRIX) IM ONE (10:27)
--- NOTE | 2018-07-23 10:30 | EDPHY ---
H & P Smoking Status: Light smoker Time Seen by Provider: 07/23/18 10:18 HPI/ROS: CHIEF COMPLAINT: Ear laceration HISTORY OF PRESENT ILLNESS: History from patient and EMS. He lives at [facility], has a history of schizophrenia and diabetes. He says he tripped over the wheel on his walker and fell hitting his left side of his head on the floor. Tetanus status unknown. Currently denies any symptoms. Specifically denies syncope, chest pain or shortness of breath, headache or neck or back pain, weakness or numbness in extremities. Arrives by EMS with pre-hospital glucose 161. REVIEW OF SYSTEMS: Eye: no change in vision ENT: no sore throat Cardiac: no chest pain or syncope Pulmonary: no cough or SOB Abdomen: no vomiting, diarrhea, abdominal pain Musculoskeletal: No extremity pain or back or neck pain Skin: Left earlobe laceration, old abrasions on right mae greater than left Neuro: no headache Constitutional: no fever : no urinary symptoms A comprehensive 10 point review of systems is otherwise negative aside from elements mentioned in the history of present illness. PAST MEDICAL HISTORY: Includes schizophrenia, diabetes, hypertension, chronic kidney disease, dementia, atherosclerotic coronary disease Social history: [facility] resident General Appearance: Alert and conversant, cooperative. Eyes: No scleral icterus. Pupils are equal reactive extraocular motion intact. ENT, Mouth: Patient has left earlobe laceration. No hemotympanum. No facial bony tenderness. Respiratory: Normal respiratory effort, breath sounds equal, lungs are clear to auscultation. Cardiovascular: Regular rate and rhythm. Gastrointestinal: Abdomen is soft and non tender. Neurological: Patient is alert and answers questions. He is able to move all 4 extremities. He knows where he is and how old he is. Skin: Left earlobe laceration. Musculoskeletal: Pelvis stable, no extremity tenderness. No cervical thoracic or lumbar spine tenderness to palpation. Psychiatric: Not agitated. Emergency Department course/MDM: Head CT performed for head trauma and age, wound care. Tetanus updated. Mechanical by history, syncope unlikely. Does not have any other acute medical complaints. Head CT negative for trauma, wound repaired by Gus MENESES, road test in ED patient has baseline stability, stable for discharge. (Janes Schwarz) Constitutional: Initial Vital Signs Temperature (C) 36.3 C 07/23/18 10:26 Heart Rate 78 07/23/18 10:26 Respiratory Rate 16 07/23/18 10:26 Blood Pressure 128/76 H 07/23/18 10:26 O2 Sat (%) 98 07/23/18 10:26 O2 Delivery Mode Room Air Allergies/Adverse Reactions: thiopental Allergy (Verified 10/15/17 03:37) Home Medications: Medication Instructions Recorded Benztropine Mesylate 0.5 mg PO BID 11/20/16 Metformin HCl [Metformin 1000 mg] 1,000 mg PO BID 11/20/16 Acetaminophen [Tylenol 325mg (*)] 650 mg PO DAILY PRN 04/30/17 Divalproex ER [Depakote ER 500 MG 2,000 mg PO DAILY 04/30/17 (*)] Insulin Detemir [Levemir] 20 unit SQ BID@08,16 04/30/17 Paliperidone Palmitate [Invega 156 mg IM Q21D 04/30/17 Sustenna (*)] Docusate Sodium [Colace 100 MG (*)] 100 mg PO BID 05/23/18 Levothyroxine [Synthroid 88 mcg 88 mcg PO DAILY06 05/23/18 (*)] Quetiapine Fumarate [Seroquel Xr] 300 mg PO DAILY 05/23/18 Atenolol [Tenormin 25 mg (*)] 12.5 mg PO BID tab 05/24/18 Medical Decision Making - Diagnostics Imaging: Discussed imaging studies w/ freight caller Radiologist - Diagnostics Imaging Results: Imaging Impressions Head CT 07/23/18 10:27 Impression: 1. Moderate atrophy. 2. No acute hemorrhage, hydrocephalus, or mass effect. 3. Cerebrovascular atherosclerosis. 4. No definite acute infarct. 5. Moderate microvascular ischemic gliosis. 6. No epidural or subdural hematoma. Findings and recommendations discussed with Emergency Department physician, Janes Schwarz at 1120 hour, 07/23/2018. Final report concurs with initial preliminary interpretation. Procedures: My involvement the care this patient is solely for procedure. Please see the note of the attending physician for all other aspects of care. 10:40 a.m. Others asked evaluate the patient for the left ear laceration. He does have laceration of the pinna of the left ear approximately 2:00 position. There is no damage to the underlying cartilage. There is no hematoma of the cartilage. The laceration is approximately 4 cm in length. I have anesthetize the area. This will require suture repair. PROCEDURE: Laceration repair Consent: Verbal Location: Left ear, pinna Length of repair: 4 cm Complexity: Complex Layer involvement: One-layer. Anesthesia: Local. 0.25% Marcaine without epinephrine, 5 mL Irrigation: Extensive Debridement: None Procedure description: Following good anesthesia, the wound was copiously irrigated. Wound bed was explored with a sterile glove, and there is no foreign body noted. No fracture to the cartilage. Wound borders were approximated well with good hemostasis. Tolerated well without complication. Suture/Staple material: Cartilage: cutaneous layer: 5-0 Prolene, 9 simple interrupted sutures Wound care: Routine as discussed Suture/Staple removal: 7 Days (Rayray Weber) - Data Points Medications Given: Discontinued Medications Diphtheria/Tetanus/Acell Pertussis (Boostrix) 0.5 ml IM .ONCE ONE Stop: 07/23/18 10:28 Last Admin: 07/23/18 10:41 Dose: 0.5 ml Departure - Departure Disposition: Home, Routine, Self-Care Clinical Impression: Laceration of left ear Qualifiers: Encounter type: initial encounter Qualified Code(s): S01.312A - Laceration without foreign body of left ear, initial encounter Condition: Good Instructions: Laceration (ED) Additional Instructions: Wound Care Follow-Up: Removal of sutures in 7 days. Suture removal is complimentary in uncomplicated cases. Infection or abnormal findings would require reevaluation by the MD. In that case, you may be billed. Referrals: ONI TAYLOR [Primary Care Provider] - As per Instructions
[2018-07-23 12:28] VITALS: BP 139/72
== END 2018-07-23 13:20 | disposition home or self-care (01) ==
LOC: EDUNIT#
PROC: 0HQ3XZZ Repair Left Ear Skin, External Approach (ICD-10-PCS; principal; 2018-07-23)
DX: S01.312A Laceration without foreign body of left ear, initial encounter (principal); F20.9 Schizophrenia, unspecified; E11.9 Type 2 diabetes mellitus without complications; Z23 Encounter for immunization; W01.198A Fall on same level from slipping, tripping and stumbling with subsequent striking against other object, initial encounter; Y92.129 Unspecified place in nursing home as the place of occurrence of the external cause; Y93.9 Activity, unspecified; Y99.9 Unspecified external cause status